=== PATIENT | female | born 1995 | race Caucasian/White ===

== ENCOUNTER 2017-01-31 12:00 | Emergency (ER) | payer OTHER ==
[~2017-01-31] VITALS: Ht 180.3 cm; Wt 87.5 kg
[~2017-01-31 12:00] MED LIST: /ONDA4TA OR; GAB OR; PERC5TAB8 OR; PERC7.5T8 OR
[2017-01-31 12:01] VITALS: BP 112/74
[2017-01-31] MEDS ORDERED: VENL37TA PO (12:15)
[2017-01-31] MEDS ORDERED: FLUD1TA PO (12:15)
[2017-01-31] MEDS ORDERED: OMEP40CA2 PO (12:15)
[2017-01-31] MEDS ORDERED: METO-346 PO (12:15)
[2017-01-31] MEDS ORDERED: DOCQ100C PO (12:15)
[2017-01-31] MEDS ORDERED: TESS100C PO (12:41)
[2017-01-31] MEDS ORDERED: ALBU17IN INH (12:41)
[2017-01-31] MEDS ORDERED: AUGM875T27 PO (12:41)
== END 2017-01-31 12:52 | disposition home or self-care (01) ==
LOC: M ED 12:30
DX: H66.003 Acute suppurative otitis media without spontaneous rupture of ear drum, bilateral (principal); R05 Cough; Z88.8 Allergy status to other drugs, medicaments and biological substances; Z79.899 Other long term (current) drug therapy

== ENCOUNTER 2017-03-24 18:30 | Emergency (ER) | payer OTHER ==
[~2017-03-24] VITALS: Ht 180.3 cm; Wt 90.3 kg
[~2017-03-24 18:30] MED LIST changes: +ALBU17IN INH; +AUGM875T27 PO; +DOCQ100C PO; +FLUD1TA PO; +METO-346 PO; +OMEP40CA2 PO; +TESS100C PO; +VENL37TA PO
[2017-03-24 22:51] LABS: BASO % 0.4 % (0.0-1.0); EOS # 0.2 K/mm3 (0.0-0.50); EOS % 2.6 % (0.0-3.0); LARGE UNSTAINED CELL # 0.2 K/mm3 (0.0-0.4); LARGE UNSTAINED CELL % 2.3 % (0.0-4.0); LYMPH # 2.5 K/mm3 (1.5-6.5); LYMPH % 35.2 % (24.0-44.0); MEAN CORPUSCULAR HEMOGLOBIN 29.3 pg (27.0-33.0); MEAN CORPUSCULAR VOLUME 86.1 fl (80.0-96.0); MONO # 0.4 K/mm3 (0.0-0.8); MONO % 5.3 % (0.0-5.0); NEUTROPHILS # 3.6 K/mm3 (1.8-7.7); NEUTROPHILS % 54.2 % (36.0-66.0); PLATELET COUNT, AUTOMATED 314 k/mm3 (150-450); RED CELL DISTRIBUTION WIDTH 14.1 % (11.5-14.5); WHITE BLOOD COUNT 6.6 K/mm3 (4.0-10.0)
[2017-03-24 22:58] LABS: INR 1.01
[2017-03-24 23:31] LABS: ANION GAP 9 MEQ/L (8-16); BLOOD UREA NITROGEN 6 MG/DL (7-18); CALCIUM LEVEL 9.1 MG/DL (8.5-10.1); CARBON DIOXIDE LEVEL 24 MEQ/L (21-32); CHLORIDE LEVEL 107 MEQ/L (98-107); FREE T4 1.15 NG/DL (0.76-1.46); GLOMERULAR FILTRATION RATE > 60.0 (>60); GLUCOSE, FASTING 86 MG/DL (70-105); HCG, SERUM QUANTITATIVE 14491 MIU/ML; POTASSIUM SERUM 3.5 MEQ/L (3.5-5.1); SODIUM LEVEL 140 MEQ/L (136-145)
[2017-03-24 23:35] LABS: METHADONE URINE NEGATIVE (NEGATIVE)
[2017-03-24] MEDS ORDERED: MACR100C3 PO (23:56)
[2017-03-25] MEDS ORDERED: NITROFURANTOIN (MACROBID) 100 MG CAP PO ONE
[2017-03-25 00:22] VITALS: BP 115/74
== END 2017-03-25 00:33 | disposition home or self-care (01) ==
LOC: M ED 22:08
DX: R55 Syncope and collapse (principal); O23.41 Unspecified infection of urinary tract in pregnancy, first trimester; O10.911 Unspecified pre-existing hypertension complicating pregnancy, first trimester; Z98.84 Bariatric surgery status; Z79.899 Other long term (current) drug therapy; Z88.8 Allergy status to other drugs, medicaments and biological substances; Z3A.00 Weeks of gestation of pregnancy not specified

== ENCOUNTER → 2017-04-03 | Outpatient (CLI) | payer OTHER ==
[~2017-04-03] MED LIST changes: +MACR100C3 PO
[2017-04-03 10:39] LABS: MEAN CORPUSCULAR HGB CONC 33.8 g/dl (32.0-36.5); MEAN CORPUSCULAR VOLUME 88.6 fl (80.0-96.0); RED CELL DISTRIBUTION WIDTH 13.7 % (11.5-14.5); WHITE BLOOD COUNT 6.1 K/mm3 (4.0-10.0)
[2017-04-03 11:08] LABS: ALBUMIN 3.4 GM/DL (3.2-5.2); ALBUMIN/GLOBULIN RATIO 0.97 (1.00-1.93); ALKALINE PHOSPHATASE 104 U/L (45-117); ALT/SGPT 16 U/L (12-78); ANION GAP 9 MEQ/L (8-16); AST/SGOT 9 U/L (15-37); BILIRUBIN,TOTAL 0.3 MG/DL (0.2-1.0); BLOOD UREA NITROGEN 8 MG/DL (7-18); CALCIUM LEVEL 8.8 MG/DL (8.5-10.1); CARBON DIOXIDE LEVEL 25 MEQ/L (21-32); CHLORIDE LEVEL 104 MEQ/L (98-107); CREATININE FOR GFR 0.71 MG/DL (0.55-1.02); GLOMERULAR FILTRATION RATE > 60.0 (>60); GLUCOSE, FASTING 61 MG/DL (70-105); SODIUM LEVEL 138 MEQ/L (136-145); THYROXINE (T4) 11.2 UG/DL (4.5-12.0); TOTAL PROTEIN 6.9 GM/DL (6.4-8.2)
== END ==
LOC: M LAB 09:51
PROVIDERS: ATTEND Nurse Practitioner Family
DX: F41.1 Generalized anxiety disorder (principal); N30.00 Acute cystitis without hematuria; Z33.1 Pregnant state, incidental

== ENCOUNTER → 2017-04-03 | Outpatient (CLI) | payer OTHER ==
--- NOTE | 2017-04-04 08:22 | REP ---
Clinical: Dating and viability. Technique: None Findings: Single live early intrauterine is appreciated. Gestational sac with yolk sac and pole identified. [place]-rump length of 9 mm corresponds to 7 weeks 0 days gestational age with estimated date of delivery 11/20/2017 . heart rate equals 136 beats per minute. No gross abnormalities are identified. Impression: Single live early intrauterine at 7 weeks 0 days gestational age. Complete anatomical assessment should be performed and 19-20 weeks. Signed by Juan Alberto Piper MD 04/04/2017 08:13 A
== END ==
LOC: M RAD 09:03
PROVIDERS: ATTEND Nurse Practitioner Women's Health
DX: O09.91 Supervision of high risk pregnancy, unspecified, first trimester (principal); Z3A.00 Weeks of gestation of pregnancy not specified

== ENCOUNTER 2017-08-14 15:54 | Inpatient (IN) | payer OTHER ==
[~2017-08-14] VITALS: Ht 180.3 cm; Wt 86.0 kg
[~2017-08-14 15:54] MED LIST changes: -AUGM875T27 PO; +AUGM875T28 PO; +FLUD0.1T PO; -FLUD1TA PO; -MACR100C3 PO; +MACR100C43 PO
[2017-08-14 17:52] VITALS: BP 116/61
[2017-08-14 17:53] VITALS: BP_SYST 113; BP_SYST 114; BP_SYST 116; BP_DIAS 61; BP_DIAS 66; BP_DIAS 71
[2017-08-14] MEDS ORDERED: MACR100C43 PO (17:59)
[2017-08-14] MEDS ORDERED: METO1TAB87 PO (17:59)
[2017-08-14] MEDS ORDERED: FLUD0.1T PO (17:59)
[2017-08-14] MEDS ORDERED: OMEP40CA2 PO (17:59)
[2017-08-14] MEDS ORDERED: PREN1CHW4 PO (17:59)
[2017-08-14] MEDS ORDERED: BENA25CA4 PO (17:59)
[2017-08-14 18:00] LABS: BASO % 0.3 % (0.0-1.0); EOS # 0.2 10^3/uL (0.0-0.50); EOS % 2.5 % (0.0-3.0); IMMATURE GRANULOCYTE % 0.2 % (0-0); LYMPH # 2.1 10^3/uL (1.5-6.5); LYMPH % 22.2 % (24.0-44.0); MEAN CORPUSCULAR HEMOGLOBIN 30.3 pg (27.0-33.0); MEAN CORPUSCULAR HGB CONC 33.7 g/dl (32.0-36.5); MONO # 0.7 10^3/uL (0.0-0.8); MONO % 7.1 % (0.0-5.0); NEUTROPHILS # 6.4 10^3/uL (1.8-7.7); NEUTROPHILS % 67.7 % (36.0-66.0); PLATELET COUNT, AUTOMATED 286 10^3/uL (150-450); RED CELL DISTRIBUTION WIDTH 13.2 % (11.5-14.5); WHITE BLOOD COUNT 9.4 10^3/uL (4.0-10.0)
[2017-08-14] MEDS ORDERED: ONDA4TAB5 PO (18:00)
[2017-08-14] MEDS: NS 1,000 ML IV SCH (18:46)
[2017-08-14 19:40] LABS: ANION GAP 9 MEQ/L (8-16); BLOOD UREA NITROGEN 6 MG/DL (7-18); CALCIUM LEVEL 8.1 MG/DL (8.5-10.1); CARBON DIOXIDE LEVEL 22 MEQ/L (21-32); CHLORIDE LEVEL 109 MEQ/L (98-107); CREATININE FOR GFR 0.43 MG/DL (0.55-1.02); GLOMERULAR FILTRATION RATE > 60.0 (>60); GLUCOSE, FASTING 75 MG/DL (70-105); POTASSIUM SERUM 3.9 MEQ/L (3.5-5.1); SODIUM LEVEL 140 MEQ/L (136-145)
--- NOTE | 2017-08-14 19:42 | HPE ---
DATE OF ADMISSION: 08/14/2017 PHYSICIAN RELATIONS SPECIALIST: Dr. Valladares OB-CLIENT RELATIONSHIP MANAGER: Dr. Infante in [place] CHIEF COMPLAINT: Recurrent syncope. HISTORY OF PRESENT ILLNESS: This is a 22-year-old 25 week gestation female with history supraventricular tachycardia (SVT) status post ablation with Holter monitor and recent echo 1 month ago with no abnormalities presented to [place] emergency room with complaints of recurrent syncope at home times five yesterday and two today. The patient states that she was making dinner last evening when she passed out for a few seconds. When she came around she denied any tonic-clonic movements, urinary or bowel incontinence. Denies any post-ictal confusion, no head trauma. She fell sideways, landed on the kitchen floor. Systolic pressure at the time when she checked it was 70/40 and had postsyncopal vomiting. She denies any history of upper respiratory infection , fever, chills, cough, rhinorrhea, nasal congestion, ear discharge or ear issues. The patient otherwise denies any palpitations, no prodromal symptoms. Did not feel like she was going to pass out. She did complain of occasional lightheadedness. She also describes massive chest pain, stabbing and burning which stopped after a few minutes, unrelated to her meals. The patient is being treated with Macrodantin for a urinary tract infection (UTI) and has had history of recurrent UTIs. She has had no injuries from the five syncopal episodes that she has had at home. In [place] emergency room, she was found to have systolic pressure of 88, orthostatic and was given 1 liter of normal saline bolus with improvement. At [facility] her blood pressure was 113/116 from supine to standing position. She otherwise denies any diarrhea, vomiting aside from the episode last evening. Denies any bright red blood per rectum, melena or black tarry stools. She denies any weight gain or weight loss. She is 25 weeks gestation. Has had no menorrhagia, no sick contacts. PAST MEDICAL HISTORY: Supraventricular tachycardia. Chronic migraines. Reflex sympathetic dystrophy (RSD). Breast cyst which was benign. Left ovarian cyst. PAST SURGICAL HISTORY: Ablation. Appendectomy. 17 nerve blocks. ALLERGIES: MIDODRINE causing numbness from head to toe, also causes rash. SEASONAL allergies. SOCIAL HISTORY: No cigarettes, alcohol, currently on SSI. Not working and not in school. Lives with her grandmother. FAMILY HISTORY: Mother living with pulmonary fibrosis. Father alive and well. No medical problems. Maternal grandfather had diabetes, pacemaker and valve replacement. Maternal aunt has diabetes. REVIEW OF SYSTEMS: Per HPI. 12 point system otherwise negative. PHYSICAL EXAMINATION: VITAL SIGNS: Temperature 98.5, pulse 89, respiratory rate 20, blood pressure 116/61 supine, standing 113/70, 100% on room air. The patient is awake, alert, oriented times three. Answering questions appropriately. Pupils are round, reactive to light. Extraocular muscles are intact. Normocephalic, atraumatic. Moist mucous membranes. No cervical lymphadenopathy, thyromegaly. Lungs are clear to auscultation. No wheezing, rales or rhonchi. Heart: S1, S2, sinus tachycardia. Abdomen is soft, nontender, nondistended. Positive bowel sounds. Gravid uterus, 25 weeks gestation. Extremities: No cyanosis, clubbing or pitting edema. Neurologically: Awake, alert, oriented times three. Answering questions appropriately. Motor function is 5 out of 5 times lower extremities. No sensory disturbances. EKG: Pending. LABS: White count 9.4, hemoglobin 10, hematocrit 30, platelet count 286, 67% neutrophils, metabolic panel is pending. Urinalysis is pending. Urine culture is pending. ASSESSMENT AND PLAN: This is a 22-year-old female with history of SVT on chronic metoprolol with chronic migraines, RSV, breast cyst and left ovarian cyst. Has had ablation for SVT, appendectomy and 17 nerve blocks. ALLERGIC to MIDODRINE causing numbness and rash presents to [facility] emergency room with 2 day history of recurrent syncope times five found to be orthostatic. Systolic pressure of 88/50 to 96/62 from supine to standing with increase in pulse from 77 to 94 with change in position. The patient is transferred to [facility] for further workup. The patient will be admitted for observation, assigned to Dr. Justin Boyce for the following issues: 1. Recurrent syncope. Most likely secondary to orthostasis. The patient will be given intravenous fluids times 2 liters. Monitored on telemetry overnight, rule out arrhythmia. She has had a Holter monitor which showed no arrhythmias and an echocardiogram one month ago with Dr. Valladares, [facility] which appears to be within normal limits. Dr. Valladares has been consulted and will see the patient on 08/15/2017. The patient denies any recent diarrhea. Aside from one or two episodes of vomiting, she is able to keep an oral diet down and tolerating oral diet at this time. She denies any bright red blood per rectum, melena or black tarry stools. Hemoglobin appears to be stable. 2. [address] Sims, Ob-Center Mgr has been consulted for monitoring. monitoring of the heart rate has also been ordered by maternity. RN has been made aware. 3. History if chronic migraines. No acute headache symptoms. 4. History of RSD. 5. History of breast cyst. 6. History of left ovarian cyst. 7. Deep venous thrombosis (DVT) prophylaxis with compression stockings. The patient will be assigned to Dr. Justin Boyce at 10:00 pm 08/14/2017. SARTHAK
[2017-08-14 19:58] VITALS: BP 117/61
[2017-08-14 20:10] VITALS: BP 117/61; PULSE 91
[2017-08-14] MEDS: diphenhydrAMINE 25 MG CAP PO SCH (20:24)
[2017-08-14] MEDS: ACETAMINOPHEN TAB 650MG DOSE (2X325MG) PO PRN (20:25)
[2017-08-14] MEDS: METOPROLOL TART 25 MG TABLET PO SCH (20:25)
[2017-08-14] MEDS: FLUDROCORTISONE ACETATE 0.1 MG TAB PO SCH (20:25)
[2017-08-14] MEDS: NITROFURANTOIN (MACROBID) 100 MG CAP PO SCH (20:26)
[2017-08-14] MEDS: OMEPRAZOLE 20 MG CAP PO SCH (20:26)
[2017-08-14] MEDS: ONDANSETRON 4 MG TAB (S0181) PO PRN (20:26)
[2017-08-15] VITALS (8 sets, daily range): BP systolic 93–123; BP diastolic 51–68; PULSE 95
[2017-08-15] MEDS: NS 1,000 ML IV SCH (04:15)
--- NOTE | 2017-08-15 06:15 | ECGEPIP ---
Stationary ECG Study [facility] Test Date: 2017-08-14 Pat Name: KAELYN PINK Department: Room: [place] [address] Gender: F Sealant Mixer: LEONORA : 1995 Requested By: STEPHAN López Order Number: [id number] Reading MD: Edson Brambila Measurements Intervals [place] Rate: 85 P: 50 [place]: 131 QRS: 11 QRSD: 83 T: -10 QT: 387 QTc: 461 Interpretive Statements SINUS RHYTHM POSSIBLE RIGHT VENTRICULAR CONDUCTION DELAY Nonspecific T wave abnormality Electronically Signed On 08-15-2017 6:15:32 EDT by Edson Brambila
[2017-08-15 06:58] LABS: BASO % 0.5 % (0.0-1.0); EOS # 0.2 10^3/uL (0.0-0.50); EOS % 3.2 % (0.0-3.0); IMMATURE GRANULOCYTE % 0.4 % (0-0); LYMPH # 2.2 10^3/uL (1.5-6.5); LYMPH % 28.3 % (24.0-44.0); MEAN CORPUSCULAR HEMOGLOBIN 30.5 pg (27.0-33.0); MEAN CORPUSCULAR HGB CONC 33.6 g/dl (32.0-36.5); MEAN CORPUSCULAR VOLUME 90.7 fl (80.0-96.0); MONO # 0.6 10^3/uL (0.0-0.8); NEUTROPHILS # 4.5 10^3/uL (1.8-7.7); NEUTROPHILS % 59.6 % (36.0-66.0); PLATELET COUNT, AUTOMATED 241 10^3/uL (150-450); RED CELL DISTRIBUTION WIDTH 13.1 % (11.5-14.5); WHITE BLOOD COUNT 7.6 10^3/uL (4.0-10.0)
[2017-08-15 07:24] LABS: ANION GAP 8 MEQ/L (8-16); BLOOD UREA NITROGEN 5 MG/DL (7-18); CALCIUM LEVEL 7.8 MG/DL (8.5-10.1); CARBON DIOXIDE LEVEL 22 MEQ/L (21-32); CHLORIDE LEVEL 112 MEQ/L (98-107); CREATININE FOR GFR 0.42 MG/DL (0.55-1.02); GLOMERULAR FILTRATION RATE > 60.0 (>60); GLUCOSE, FASTING 77 MG/DL (70-105); POTASSIUM SERUM 3.8 MEQ/L (3.5-5.1); SODIUM LEVEL 142 MEQ/L (136-145)
[2017-08-15] MEDS: PRENATAL VITAMINS CHEWABLE TABLET PO SCH (08:19)
[2017-08-15] MEDS: NITROFURANTOIN (MACROBID) 100 MG CAP PO SCH ×2 (08:20→22:26)
[2017-08-15] MEDS: ACETAMINOPHEN TAB 650MG DOSE (2X325MG) PO PRN ×2 (09:02→18:33)
--- NOTE | 2017-08-15 09:13 | CR ---
DATE OF CONSULTATION: 08/15/2017 REFERRING PHYSICIAN: Dr. Dale INDICATION: Recurrent syncope. HISTORY OF PRESENT ILLNESS: Ms. Cortes is known to me. She is a pleasant 22-year-old female who is currently 25 weeks . She has a long history of supraventricular tachycardia and underwent ablation 3 years ago in [place] that brought fairly substantial improvement in her symptoms. She still though continued to have orthostatic hypotension and consequently she was maintained on a small dose of fludrocortisone. With the onset of her though, her symptoms markedly improved and she had not had any syncope or near-syncope until a week ago. At that point, she started having episodes of gali syncope. She describes them as somewhat complex events. She usually would wake up with a headache behind her right eye. Then the headache would persist throughout the day and then at some point she starts having chest pain. It is a sharp discomfort just left from her sternum without obvious radiation that can be present for several minutes up to several hours, but eventually when the pain starts subsiding she will suddenly lose consciousness without any warning. None of the episodes were witnessed, but it appears that the loss of consciousness is probably quite brief. When she wakes up, she usually has much more severe headache than she had previously and often is nauseated and vomits. She also has metallic taste in her mouth. She does not recall any loss of bowel or urine control during the episodes. Somewhat surprisingly, the episodes occur also when she is lying in bed or sitting, but obviously with standing occurs as well. She was calling our office yesterday and after hearing that she had five syncopal events in a matter of 24 hours she was instructed to go to the emergency room in [place]. They contacted me and I helped to arranged the transfer. I appreciate the willingness of the hospitalist service to accept the patient on their service. She has been well since she came here and has not had any events, but she does report that she does have the headache behind her right eye again today and she usually says that when she has headaches she is a lot more likely to have yet another loss of consciousness. At the bedside, I interrogated her Reveal monitor that she has implanted since her ablation. It revealed no arrhythmias lately, the last one was on May 30. It represents narrow complex tachycardia with ventricular rate of 175 beats per minute, unlikely to lead to loss of consciousness. PAST MEDICAL HISTORY: Positive for supraventricular tachycardia (SVT) as above, chronic orthostatic hypotension, migraine headaches, reflex sympathetic dystrophy (RSD) and resection of breast cyst. SURGICAL HISTORY: Positive for appendectomy and nerve blocks. ALLERGIES: She reports allergy or intolerance to MIDODRINE. SOCIAL HISTORY: She lives with her grandmother who works so she is often alone. She is single, does not work, does not smoke. No alcohol. FAMILY HISTORY: Mother has pulmonary fibrosis. Father is well. There is no history of sudden cardiac . REVIEW OF SYSTEMS: She denies any recent fever, chills. No nausea or vomiting outside of the episode immediately following loss of consciousness. No abdominal pain. No burning on urination. No peripheral edema. No injuries. PHYSICAL EXAMINATION: Mrs. Cortes is a young woman who appears her age. She appears in no distress. Blood pressure is low, typically running in the 90s systolic and 50s diastolic. She had two sets of orthostatic vital signs that were negative. Saturation 99% in room air. Heart rate in 70s to 90s and she is afebrile. Weighs 86.2 kg. She is alert, oriented and appropriate. Her jugular venous pulse (JVP) is not elevated. I do not appreciate any goiter. There is no carotid bruit. Lungs are clear to auscultation with good air movement. Heart exam reveals regular rhythm without gallop, rub or murmur. There is a Reveal monitor implanted under the skin in the left precordial area just adjacent to the sternum. Abdomen is , but soft and otherwise benign. I do not appreciate hepatosplenomegaly. There is no peripheral edema. Neurologically she is intact. There are no skin lesions. LABORATORY-[facility]: CBC this morning: Hemoglobin 9.2, hematocrit 27.4, platelet count 241,000. Basic metabolic panel is normal. TSH is slightly suppressed at 0.19. She had the urinalysis in [place] and also here that revealed a few white blood cells and some bacteria. Loop recorder interrogation as above. ASSESSMENT/PLAN: Ms. Cortes is a 22-year-old female who has a remote history of SVT status post ablation. She presented with five syncopal events that were unwitnessed in the scope of about 24 hours. The last one was yesterday morning. The description of the episode is not sounding arrhythmic and the Reveal monitor did not record any arrhythmias so I think that we can rule this out. She also does not give a history that is typical for orthostatic hypotension as at least two of the episodes occurred when she was actually in bed or laying in the recliner. There are several features that make me suspicious of neurologic etiology. First of all, that the episodes always occur when she has a headache and the headache gets much worse shortly after the event. She also has a metallic taste in her mouse after that the episode is over. I would think it would be appropriate to get neurologic input. From my perspective, besides monitoring the patient for one more day or so, I would not plan any further interventions. She was intolerant of midodrine and it is probably not a good idea to administer it during anyhow. There is no convincing evidence that the episodes are orthostatic in nature. She did not have any arrhythmias and consequently I have very little to offer here. As far as the etiology of chest pain is concerned, it is somewhat mysterious. She has shallow T-wave inversions in inferior leads and I think are probably nonspecific. She certainly does not have coronary artery disease in her age and the description is not suggestive of ischemic etiology. I also am not convinced about the possibility of a pericardial process. I am going to get a followup EKG tomorrow, but unless there is some evolution I do not think that we need to do any further cardiac testing. SARTHAK
[2017-08-15 09:27] LABS: FREE T4 1.16 NG/DL (0.76-1.46); MAGNESIUM LEVEL 1.4 MG/DL (1.8-2.4)
[2017-08-15] MEDS: ONDANSETRON 4 MG TAB (S0181) PO PRN (13:26)
--- NOTE | 2017-08-15 16:08 | IPNPDOC ---
Text Note Date of Service The patient was seen on 08/15/17. NOTE Subjective: Pt c/o syncope x 5 prior to admission. Appears she was orthostatic prior to coming to [facility]. Orthostatics negative now, but her lightheadedness /[place] is still persistent. Objective: Vitals: (see below) General: No acute distress, laying comfortably in bed. HEENT: Moist mucous membranes. Neck: No JVD or lymphadenopathy Cardiac: RRR, No murmurs Pulm: Clear to auscultation b/l. No wheezing, rhonchi Abd: NT/ND + BS Ext: No edema or cyanosis Labs (see below) Images: Assessment/Plan 1. Syncope - ?orthostatic cause. Apparently orthostatic at [facility]; Will check manual orthostatic vitals. H/o SVT s/p ablation; no recent arrhythmias. Appreciate cardio input. Neuro consulted as well given association with migraines; MRI/MRV Brain, EEG pending. 2. H/o chronic migraines - states she has been on many preventative agents with no relief 3. H/o orthostatic hypotension on florinef 4. 25 week gestation - OBGYN consulted for monitoring. 5. ? UTI - states she has a h/o frequent UTIs, and was told she has a UTI at [facility] ; placed on nitrofurantoin. DVT prophy:SCDs VS,Fishbone, I+O VS, Fishbone, I+O Laboratory Tests 08/14/17 17:48 Red Blood Count 3.40 L, Mean Corpuscular Volume 90.0, Mean Corpuscular Hemoglobin 30.3, Mean Corpuscular Hemoglobin Concent 33.7, Red Cell Distribution Width 13.2, Neutrophils (%) (Auto) 67.7 H, Lymphocytes (%) (Auto) 22.2 L, Monocytes (%) (Auto) 7.1 H, Eosinophils (%) (Auto) 2.5, Basophils (%) ( Auto) 0.3, Neutrophils # (Auto) 6.4, Lymphocytes # (Auto) 2.1, Monocytes # (Auto ) 0.7, Eosinophils # (Auto) 0.2, Basophils # (Auto) 0.0, Calcium Level 8.1 L 08/15/17 06:48 Red Blood Count 3.02 L, Mean Corpuscular Volume 90.7, Mean Corpuscular Hemoglobin 30.5, Mean Corpuscular Hemoglobin Concent 33.6, Red Cell Distribution Width 13.1, Neutrophils (%) (Auto) 59.6, Lymphocytes (%) (Auto) 28.3, Monocytes (%) (Auto) 8.0 H, Eosinophils (%) (Auto) 3.2 H, Basophils (%) ( Auto) 0.5, Neutrophils # (Auto) 4.5, Lymphocytes # (Auto) 2.2, Monocytes # (Auto ) 0.6, Eosinophils # (Auto) 0.2, Basophils # (Auto) 0.0, Calcium Level 7.8 L, Total Creatine Kinase 26 Vital Signs Date Time Temp Pulse Resp B/P (MAP) Pulse Ox O2 Delivery O2 Flow Rate FiO2 08/15/17 12:00 97.6 89 16 106/58 (74) 99 Room Air I&O- Last 24 Hours up to 6 AM 08/16/17 06:00 Intake Total 360 ml Output Total 650 ml Balance -290 ml JENNY SYKES MD Aug 15, 2017 16:08
--- NOTE | 2017-08-15 21:50 | REPUSA ---
Clinical history: headaches, syncope. Technique: Camc-eb-tstrbp MRV images of the brain were obtained without administration of contrast. 3 -D MIP images were also obtained. Findings: The intracranial venous structures demonstrate normal caliber and contour. There is no evid ence of aneurysm, stenosis, or thrombosis. Impression: Unremarkable MRV examination of the brain.
--- NOTE | 2017-08-15 22:10 | REPUSA ---
MRI brain clinical history: headache. Technique: Multiecho multiplanar MRI images of the brain were obtained without administration of cont rast. Diffusion weighted images with ADC mapping was also obtained. The ventricles and sulci are symmetric bilaterally. The brain parenchyma demonstrates uniform and nor mal signal on all sequences. There is no midline shift, mass effect, or extra-axial fluid collection. The midline intracranial structures do not demonstrate any gross abnormalities. The cervical cranial junction is intact. The orbits are unremarkable. The visualized paranasal sinuses and mastoid air ce lls are clear. The osseous structures and superficial soft tissues are unremarkable. The vascular str uctures demonstrate appropriate flow voids. Impression: No acute findings.
[2017-08-15] MEDS: FLUDROCORTISONE ACETATE 0.1 MG TAB PO SCH (22:25)
[2017-08-15] MEDS: diphenhydrAMINE 25 MG CAP PO SCH (22:25)
[2017-08-15] MEDS: OMEPRAZOLE 20 MG CAP PO SCH (22:26)
[2017-08-15] MEDS: METOPROLOL TART 25 MG TABLET PO SCH (22:35)
[2017-08-16 04:00] VITALS: BP 103/53
[2017-08-16 08:00] VITALS: BP 91/54
[2017-08-16 08:29] LABS: BASO % 0.4 % (0.0-1.0); EOS # 0.2 10^3/uL (0.0-0.50); IMMATURE GRANULOCYTE % 0.2 % (0-0); LYMPH # 1.9 10^3/uL (1.5-6.5); LYMPH % 23.1 % (24.0-44.0); MEAN CORPUSCULAR HEMOGLOBIN 30.5 pg (27.0-33.0); MEAN CORPUSCULAR VOLUME 89.6 fl (80.0-96.0); MONO # 0.6 10^3/uL (0.0-0.8); MONO % 7.2 % (0.0-5.0); NEUTROPHILS # 5.3 10^3/uL (1.8-7.7); NEUTROPHILS % 66.1 % (36.0-66.0); PLATELET COUNT, AUTOMATED 267 10^3/uL (150-450); WHITE BLOOD COUNT 8.1 10^3/uL (4.0-10.0)
[2017-08-16] MEDS: PRENATAL VITAMINS CHEWABLE TABLET PO SCH (08:46)
[2017-08-16] MEDS: NITROFURANTOIN (MACROBID) 100 MG CAP PO SCH ×2 (08:46→22:32)
[2017-08-16 08:54] LABS: ANION GAP 7 MEQ/L (8-16); BLOOD UREA NITROGEN 4 MG/DL (7-18); CALCIUM LEVEL 8.1 MG/DL (8.5-10.1); CARBON DIOXIDE LEVEL 25 MEQ/L (21-32); CHLORIDE LEVEL 110 MEQ/L (98-107); CREATININE FOR GFR 0.51 MG/DL (0.55-1.02); GLOMERULAR FILTRATION RATE > 60.0 (>60); GLUCOSE, FASTING 75 MG/DL (70-105); MAGNESIUM LEVEL 1.5 MG/DL (1.8-2.4); POTASSIUM SERUM 4.1 MEQ/L (3.5-5.1); SODIUM LEVEL 142 MEQ/L (136-145)
[2017-08-16 11:35] VITALS: BP_SYST 96; BP_SYST 98; BP_DIAS 56; BP_DIAS 58
[2017-08-16 12:00] VITALS: BP 104/56
--- NOTE | 2017-08-16 12:00 | CR ---
DATE OF CONSULTATION: 08/15/2017 REFERRING PHYSICIAN: Dr. Justin Boyce REASON FOR CONSULTATION: Passing out spells. HISTORY OF PRESENT ILLNESS: Ann-Marie Cortes is a 22-year-old woman who is 25 weeks and has a history of supraventricular tachycardia (SVT) status post cardiac ambulation in 2014. The patient states that she started passing out in 2013 and states that she has passed out more than 500 times in the last 3 years. Her passing-out spells are different than one another, but they have some common symptoms such as chest pain, migraine, nausea, vomiting before or after her passing-out spells. She has passed out four or five times over the last couple of days. She was making dinner evening prior to her day of admission when she passed out for a few seconds. There were no shaking of arms and legs, urinary incontinence or tongue biting. Another time she fell sideways and landed on the kitchen floor. Her blood pressure was systolic/diastolic 70/40. She vomited after her passing-out spell. She also has off and on lightheadedness. She has massive chest pain, stabbing, burning in character. The patient states that she has been on Social Security/Disability due to her passing out spells. She has a history of migraines since 5 years of age. She was under the care of neurologist at [facility]. She states that she does not believe in Botox and has been refusing Botox when it was recommended at [facility]. She last saw them in 2014. She used to have nerve blocks in frontal and temporal head regions on the right side. She states that she did not have any headaches since of 2014 until now. She states that her headaches went away. They came back a couple of days ago. She currently has right frontal and temporal 10/10 headache with nausea, dizziness, blurred vision, photophobia and phonophobia. Headaches are sharp pressure or pounding in character with dizziness. She denies any neck or back pain. PAST MEDICAL HISTORY: History of SVT status, post cardiac ablation, multiple passing-out spells, migraines which are chronic, reflex sympathetic dystrophy (RSD), breast cyst, left ovarian cyst, appendectomy, nerve blocks for headaches. ALLERGIES: MIDODRINE. SOCIAL HISTORY: She denies smoking, alcohol or illicit drugs. She is on Social Security/Disability. FAMILY HISTORY: Mother has pulmonary fibrosis. Father is healthy. Maternal grandfather has diabetes and pacemaker. CURRENT MEDICATIONS: - Florinef 0.3 mg by mouth nightly - metoprolol 25 mg by mouth daily - Prilosec 40 mg by mouth daily - Benadryl 50 mg by mouth nightly - vitamins REVIEW OF SYSTEMS: All systems were reviewed and were found to be noncontributory except as mentioned in the history of the present illness. PHYSICAL EXAMINATION: Temperature 97.4, pulse 85, respiratory rate 16, blood pressure 114/57, 100% saturation on room air. Heart: Regular rate and rhythm. Lungs: Clear to auscultation. Abdomen: Soft, nontender, nondistended. No pedal edema. No rash. No fractures. Ears, Nose, Throat examination is within normal limits. The patient is awake, alert, oriented to place, person and time. She appears to have photophobia and keeps lights off in the room and keeps her eyes closed during examination. Extraocular muscles are intact. No facial weakness. Tongue/uvula are midline. 5/5 strength in all four extremities. No dysmetria or ataxia. There is no tremor. There is no rigidity. Sensations are intact throughout. Deep tendon flexes are 2+ throughout. Gait was not tested. There are no signs of meningeal irritation. ASSESSMENT: 1. Chronic migraines, without aura, intractable, with status migrainosus. 2. Chronic tension headaches, intractable. 3. Suspected vasovagal syncope. 4. Seizures are less likely. 5. History of supraventricular tachycardia (SVT) without recurrence after cardiac ablation. 6. Chest pain. PLAN: 1. MRI and MRV of brain if radiology agrees to perform these tests during . 2. Fioricet one tablet by mouth three times a day as needed. 3. Physical and occupational therapy. 4. EEG. 5. Patient will followup with her neurologist at [facility] and cardiology.
--- NOTE | 2017-08-16 15:36 | IPNPDOC ---
Text Note Date of Service The patient was seen on 08/16/17. NOTE Subjective: Patient states that's she's had episode of syncope when she went down for MRI. Had a severe headache at the time as well. Objective: Vitals: (see below) General: No acute distress, laying comfortably in bed. HEENT: Moist mucous membranes. Neck: No JVD or lymphadenopathy Cardiac: RRR, No murmurs Pulm: Clear to auscultation b/l. No wheezing, rhonchi Abd: NT/ND + BS Ext: No edema or cyanosis Labs (see below) Images: Assessment/Plan 1. Syncope - manual Orthostatic vitals have been negative. H/o SVT s/p ablation ; no recent arrhythmias. Appreciate cardio input. Neuro consulted as well given association with migraines; MRI/MRV Brain negative, EEG pending. Exact cause of her syncope is not well known at this point, although it can be multifactorial given her history. 2. H/o chronic migraines - states she has been on many preventative agents with no relief 3. H/o orthostatic hypotension on florinef 4. 25 week gestation - OBGYN consulted for monitoring. 5. ? UTI - states she has a h/o frequent UTIs, and was told she has a UTI at [facility] ; placed on nitrofurantoin. DVT prophy:SCDs VS,Fishbone, I+O VS, Fishbone, I+O Laboratory Tests 08/16/17 08:19 Red Blood Count 3.28 L, Mean Corpuscular Volume 89.6, Mean Corpuscular Hemoglobin 30.5, Mean Corpuscular Hemoglobin Concent 34.0, Red Cell Distribution Width 13.0, Neutrophils (%) (Auto) 66.1 H, Lymphocytes (%) (Auto) 23.1 L, Monocytes (%) (Auto) 7.2 H, Eosinophils (%) (Auto) 3.0, Basophils (%) ( Auto) 0.4, Neutrophils # (Auto) 5.3, Lymphocytes # (Auto) 1.9, Monocytes # (Auto ) 0.6, Eosinophils # (Auto) 0.2, Basophils # (Auto) 0.0, Calcium Level 8.1 L Vital Signs Date Time Temp Pulse Resp B/P (MAP) Pulse Ox O2 Delivery O2 Flow Rate FiO2 08/16/17 12:00 98.1 99 18 104/56 (74) 97 Room Air I&O- Last 24 Hours up to 6 AM 08/17/17 06:00 Intake Total 720 ml Output Total 400 ml Balance 320 ml JENNY SYKES MD Aug 16, 2017 15:36
[2017-08-16 16:00] VITALS: BP 95/53
[2017-08-16] MEDS: ACETAMINOPHEN TAB 650MG DOSE (2X325MG) PO PRN ×2 (16:34→22:34)
[2017-08-16 20:00] VITALS: BP 109/56
[2017-08-16] MEDS: OMEPRAZOLE 20 MG CAP PO SCH (22:31)
[2017-08-16] MEDS: FLUDROCORTISONE ACETATE 0.1 MG TAB PO SCH (22:32)
[2017-08-16] MEDS: ONDANSETRON 4 MG TAB (S0181) PO PRN (22:32)
[2017-08-16] MEDS: diphenhydrAMINE 25 MG CAP PO SCH (22:32)
[2017-08-16] MEDS: METOPROLOL TART 25 MG TABLET PO SCH (22:33)
[2017-08-17] VITALS (7 sets, daily range): BP systolic 88–110; BP diastolic 40–68
[2017-08-17 04:40] LABS: MEAN CORPUSCULAR HEMOGLOBIN 30.2 pg (27.0-33.0); MEAN CORPUSCULAR HGB CONC 33.8 g/dl (32.0-36.5); MEAN CORPUSCULAR VOLUME 89.3 fl (80.0-96.0); PLATELET COUNT, AUTOMATED 264 10^3/uL (150-450); RED CELL DISTRIBUTION WIDTH 13.2 % (11.5-14.5); WHITE BLOOD COUNT 7.8 10^3/uL (4.0-10.0)
[2017-08-17 04:56] LABS: CHLORIDE LEVEL 110 MEQ/L (98-107); CREATININE FOR GFR 0.49 MG/DL (0.55-1.02); GLUCOSE, FASTING 76 MG/DL (70-105); MAGNESIUM LEVEL 1.6 MG/DL (1.8-2.4); POTASSIUM SERUM 3.6 MEQ/L (3.5-5.1); SODIUM LEVEL 141 MEQ/L (136-145)
[2017-08-17 05:12] LABS: BLOOD UREA NITROGEN 6 MG/DL (7-18)
[2017-08-17 05:17] LABS: ANION GAP 8 MEQ/L (8-16); CARBON DIOXIDE LEVEL 23 MEQ/L (21-32)
--- NOTE | 2017-08-17 06:19 | ECGEPIP ---
Stationary ECG Study [facility] Test Date: 2017-08-15 Pat Name: KAELYN PINK Department: Room: [place] [address] Gender: F Compliance Paralegal: RUFINA : 1995 Requested By: JENNY SYKES Order Number: [id number] Reading MD: Edson Brambila Measurements Intervals [place] Rate: 87 P: 47 MT: 119 QRS: 17 QRSD: 81 T: -18 QT: 389 QTc: 468 Interpretive Statements SINUS RHYTHM WITH SHORT MT INTERVAL NONSPECIFIC T-WAVE ABNORMALITY Electronically Signed On 08-17-2017 6:19:16 EST by Edson Brambila
--- NOTE | 2017-08-17 06:22 | ECGEPIP ---
Stationary ECG Study [facility] Test Date: 2017-08-16 Pat Name: KAELYN PINK Department: Room: [place] [address] Gender: F Harness Mender: DEVEN : 1995 Requested By: Dawna Valladares Order Number: [id number] Reading MD: Edson Brambila Measurements Intervals [place] Rate: 76 P: 56 LA: 127 QRS: 18 QRSD: 86 T: -13 QT: 412 QTc: 466 Interpretive Statements SINUS RHYTHM Nonspecific T wave abnormality Electronically Signed On 08-17-2017 6:22:01 EST by Edson Brambila
[2017-08-17] MEDS ORDERED: SODIUM CHLORIDE 0.9% 1000 ML IV ONE (08:00)
[2017-08-17] MEDS ORDERED: MAG SULF 1GM/100ML (MAG RUN) 1 GM in APPROPRIATE DILUENT 1 EA IV ONE (08:00)
[2017-08-17] MEDS: ONDANSETRON 4 MG TAB (S0181) PO PRN (08:17)
[2017-08-17] MEDS: NITROFURANTOIN (MACROBID) 100 MG CAP PO SCH ×2 (08:17→21:09)
[2017-08-17] MEDS: PRENATAL VITAMINS CHEWABLE TABLET PO SCH (08:17)
[2017-08-17] MEDS ORDERED: POTASSIUM CHLORIDE 10 MEQ SR TABLET PO ONE (09:00)
--- NOTE | 2017-08-17 14:35 | IPNPDOC ---
Text Note Date of Service The patient was seen on 08/17/17. NOTE Subjective: Patient states she has some dizziness today. Denies any syncopal episodes. No chest pain/shortness of breath/palpitations. Objective: Vitals: (see below) General: No acute distress, laying comfortably in bed. HEENT: Moist mucous membranes. Neck: No JVD or lymphadenopathy Cardiac: RRR, No murmurs Pulm: Clear to auscultation b/l. No wheezing, rhonchi Abd: NT/ND + BS Ext: No edema or cyanosis Labs (see below) Images: Assessment/Plan 1. Syncope - manual Orthostatic vitals have been negative. H/o SVT s/p ablation ; no recent arrhythmias. Appreciate cardio input. Neuro consulted as well given association with migraines; MRI/MRV Brain negative, EEG pending. Exact cause of her syncope is not well known at this point, although it can be multifactorial given her history. 2. H/o chronic migraines - states she has been on many preventative agents with no relief 3. H/o orthostatic hypotension on florinef 4. 25 week gestation - OBGYN consulted for monitoring. 5. ? UTI - states she has a h/o frequent UTIs, and was told she has a UTI at [facility] ; placed on nitrofurantoin. DVT prophy:SCDs VS,Fishbone, I+O VS, Fishbone, I+O Laboratory Tests 08/17/17 04:00 Red Blood Count 3.08 L, Mean Corpuscular Volume 89.3, Mean Corpuscular Hemoglobin 30.2, Mean Corpuscular Hemoglobin Concent 33.8, Red Cell Distribution Width 13.2, Calcium Level 8.0 L Vital Signs Date Time Temp Pulse Resp B/P (MAP) Pulse Ox O2 Delivery O2 Flow Rate FiO2 08/17/17 12:00 97.8 80 18 96/52 (67) 99 Room Air I&O- Last 24 Hours up to 6 AM 08/18/17 06:00 Intake Total 240 ml Output Total 800 ml Balance -560 ml JENNY SYKES MD Aug 17, 2017 14:35
[2017-08-17] MEDS: ACETAMINOPHEN TAB 650MG DOSE (2X325MG) PO PRN (15:07)
[2017-08-17] MEDS: FLUDROCORTISONE ACETATE 0.1 MG TAB PO SCH (21:07)
[2017-08-17] MEDS: OMEPRAZOLE 20 MG CAP PO SCH (21:08)
[2017-08-17] MEDS: METOPROLOL TART 12.5 MG PER 1/2 TAB PO SCH (21:08)
[2017-08-17] MEDS: diphenhydrAMINE 25 MG CAP PO SCH (21:08)
[2017-08-18] VITALS (7 sets, daily range): BP systolic 86–100; BP diastolic 50–62
[2017-08-18 05:27] LABS: MEAN CORPUSCULAR HEMOGLOBIN 30.3 pg (27.0-33.0); MEAN CORPUSCULAR HGB CONC 33.5 g/dl (32.0-36.5); MEAN CORPUSCULAR VOLUME 90.6 fl (80.0-96.0); PLATELET COUNT, AUTOMATED 274 10^3/uL (150-450); RED CELL DISTRIBUTION WIDTH 13.1 % (11.5-14.5)
[2017-08-18 05:39] LABS: ANION GAP 7 MEQ/L (8-16); BLOOD UREA NITROGEN 6 MG/DL (7-18); CALCIUM LEVEL 8.1 MG/DL (8.5-10.1); CARBON DIOXIDE LEVEL 25 MEQ/L (21-32); CHLORIDE LEVEL 109 MEQ/L (98-107); CREATININE FOR GFR 0.49 MG/DL (0.55-1.02); GLOMERULAR FILTRATION RATE > 60.0 (>60); GLUCOSE, FASTING 81 MG/DL (70-105); MAGNESIUM LEVEL 1.5 MG/DL (1.8-2.4); POTASSIUM SERUM 3.6 MEQ/L (3.5-5.1); SODIUM LEVEL 141 MEQ/L (136-145)
--- NOTE | 2017-08-18 06:12 | CR ---
DATE OF CONSULTATION: 08/16/2017 A 22-year-old 1 female, 25 weeks gestation with a history of supraventricular tachycardia (SVT), status post ablation, since with recurrent syncopal episodes at home in the day preceding admission. She could lose consciousness for a few seconds at any point in time. She denies incontinence or tonic-clonic movements. She denies postictal confusion or head trauma. Blood pressure was often on the low side at the time of episodes, as low as 70/40. She has had occasional episodes of vomiting after her syncopal spells. She has had occasional chest pain and burning pain, which stops and is unrelated to meals. She initially presented to [facility] where she was found to be orthostatic. She received intravenous (IV) fluids with good response. MEDICAL HISTORY: 1. Supraventricular tachycardia. 2. Chronic migraines. 3. Reflex sympathetic dystrophy. 4. Benign breast cysts. 5. Ovarian cyst. SURGICAL HISTORY: 1. Cardiac ablation. 2. Appendectomy. 3. 17 nerve blocks. ALLERGIES: MIDODRINE. SOCIAL HISTORY: Patient denies cigarettes or alcohol, is currently on disability and not working. She lives with her grandmother in [place]. FAMILY HISTORY: Her mother has pulmonary fibrosis. Her father is alive and well. PHYSICAL EXAMINATION: Blood pressure 109/56, pulse 87, respiratory rate 17, afebrile. She is in no apparent distress. Head and neck exam: Normal. Lungs: Clear. Heart: Regular rate and rhythm. Abdomen: Nontender, gravid. heart tones are category 1. Extremities: Nontender. No edema. ASSESSMENT: A 22-year-old 1 female, 25 weeks gestation, presents with recurrent syncopal episodes. The most likely cause of syncopal episodes is hypotension. The patient has underlying cardiac history but her SVT appears to be under control. Will plan to monitor the fetus twice a day while hospitalized here. The patient receives care through the [facility] [employer] with Dr. Infante. All indicated radiology procedures should be performed if thought to be necessary in determining etiology of patient's symptoms. We will continue to follow.
[2017-08-18] MEDS: PRENATAL VITAMINS CHEWABLE TABLET PO SCH (08:40)
[2017-08-18] MEDS: NITROFURANTOIN (MACROBID) 100 MG CAP PO SCH ×2 (08:40→20:37)
[2017-08-18] MEDS ORDERED: MAG SULF 1GM/100ML (MAG RUN) 1 GM in APPROPRIATE DILUENT 1 EA IV ONE (08:45)
--- NOTE | 2017-08-18 08:57 | IPN ---
DATE: 08/18/2017 Ms. Cortes continues to feel about the same. She did not have any one of her major episodes of syncope over the monitor. But she still feels dizzy when upright or walking. She also reports ongoing headache, even though admits that it is a little bit better than it was before. PHYSICAL EXAMINATION: Blood pressure is 92/54, heart rate has been in 70s and 80s. She is afebrile. Saturation 98% on room air. Weight is 86.9 kg. JVP is not up. Lungs are clear to auscultation. Heart: Exam reveals regular rhythm. No gallop or rub. Abdomen is soft, . No peripheral edema. Neurologically she appears completely intact. LABORATORY: As of today her CBC revealed WBC count 9.4, otherwise is normal. Basic metabolic panel is normal as well. ASSESSMENT/PLAN: Ms. Cortes is 22-year-old white female who is currently in her 25th week of . She presented with several syncopal events, but based on interrogation of the reveal monitor she did not have any arrhythmias and we do not see any convincing hypotension, even though her blood pressure is generally low at baseline. At this point I think she can be discharged home from my perspective, there is not much else I can contribute for management but I believe that it is safe for her to go home. I explained to her that it is likely that she will continue to be similarly symptomatic throughout the and it will be good if she has some assistance at home. She has no problem going home, but asked me to get help with obtaining chair that she can sit on when she takes a shower because she becomes very symptomatic when standing in the shower stall. I would think that should be a possible. I tend to see her in the office in approximately a month.
--- NOTE | 2017-08-18 14:18 | IPNPDOC ---
Text Note Date of Service The patient was seen on 08/18/17. NOTE Subjective: Patient states she has some dizziness with standing today. Denies any syncopal episodes. No chest pain/shortness of breath/palpitations. Objective: Vitals: (see below) General: No acute distress, laying comfortably in bed. HEENT: Moist mucous membranes. Neck: No JVD or lymphadenopathy Cardiac: RRR, No murmurs Pulm: Clear to auscultation b/l. No wheezing, rhonchi Abd: NT/ND + BS Ext: No edema or cyanosis Labs (see below) Images: Assessment/Plan 1. Syncope - manual Orthostatic vitals have been negative. H/o SVT s/p ablation ; no recent arrhythmias. Appreciate cardio input. Neuro consulted as well given association with migraines; Dr. Jimenez would like EEG done prior to d/c. MRI/MRV Brain negative, Exact cause of her syncope is not well known at this point, although it can be multifactorial given her history. EEG done today, results pending. 2. H/o chronic migraines - states she has been on many preventative agents with no relief 3. H/o orthostatic hypotension on florinef 4. 25 week gestation - OBGYN consulted for monitoring. 5. ? UTI - states she has a h/o frequent UTIs, and was told she has a UTI at [facility] ; placed on nitrofurantoin. DVT prophy:SCDs VS,Fishbone, I+O VS, Fishbone, I+O Laboratory Tests 08/18/17 04:49 Red Blood Count 3.10 L, Mean Corpuscular Volume 90.6, Mean Corpuscular Hemoglobin 30.3, Mean Corpuscular Hemoglobin Concent 33.5, Red Cell Distribution Width 13.1, Calcium Level 8.1 L Vital Signs Date Time Temp Pulse Resp B/P (MAP) Pulse Ox O2 Delivery O2 Flow Rate FiO2 08/18/17 12:00 87 91/50 (64) 100 96/57 (70) 113 94/58 (70) 08/18/17 12:00 97.1 20 97 Room Air I&O- Last 24 Hours up to 6 AM 08/19/17 06:00 Intake Total 600 ml Output Total 600 ml Balance 0 ml JENNY SYKES MD Aug 18, 2017 14:18
[2017-08-18] MEDS: ACETAMINOPHEN TAB 650MG DOSE (2X325MG) PO PRN (16:02)
[2017-08-18] MEDS: METOPROLOL TART 12.5 MG PER 1/2 TAB PO SCH (20:36)
[2017-08-18] MEDS: diphenhydrAMINE 25 MG CAP PO SCH (20:36)
[2017-08-18] MEDS: OMEPRAZOLE 20 MG CAP PO SCH (20:36)
[2017-08-18] MEDS: FLUDROCORTISONE ACETATE 0.1 MG TAB PO SCH (20:37)
[2017-08-19] VITALS (8 sets, daily range): BP systolic 88–105; BP diastolic 47–64
[2017-08-19 06:09] LABS: MEAN CORPUSCULAR HEMOGLOBIN 29.6 pg (27.0-33.0); MEAN CORPUSCULAR HGB CONC 32.8 g/dl (32.0-36.5); MEAN CORPUSCULAR VOLUME 90.3 fl (80.0-96.0); PLATELET COUNT, AUTOMATED 269 10^3/uL (150-450); RED CELL DISTRIBUTION WIDTH 12.8 % (11.5-14.5); WHITE BLOOD COUNT 7.8 10^3/uL (4.0-10.0)
[2017-08-19 06:46] LABS: ANION GAP 8 MEQ/L (8-16); BLOOD UREA NITROGEN 6 MG/DL (7-18); CARBON DIOXIDE LEVEL 24 MEQ/L (21-32); CHLORIDE LEVEL 109 MEQ/L (98-107); CREATININE FOR GFR 0.48 MG/DL (0.55-1.02); GLOMERULAR FILTRATION RATE > 60.0 (>60); GLUCOSE, FASTING 79 MG/DL (70-105); MAGNESIUM LEVEL 1.7 MG/DL (1.8-2.4); POTASSIUM SERUM 3.8 MEQ/L (3.5-5.1); SODIUM LEVEL 141 MEQ/L (136-145)
[2017-08-19] MEDS: PRENATAL VITAMINS CHEWABLE TABLET PO SCH (09:04)
[2017-08-19] MEDS: NITROFURANTOIN (MACROBID) 100 MG CAP PO SCH ×2 (09:04→20:14)
[2017-08-19] MEDS ORDERED: SODIUM CHLORIDE 0.9% 1000 ML IV ONE (12:15)
--- NOTE | 2017-08-19 15:56 | IPNPDOC ---
Text Note Date of Service The patient was seen on 08/19/17. NOTE Subjective: Patient is a 22 year old female with a PMHx of SVT s/p ablation with Holter monitor, Chronic migraines, Reflex sympathetic dystrophy, Orthostatic hypotension (on Fludrocortisone), who presented to the ED with complaints of fainting. She has a history of fainting >500 times, as she has reported. Patient was seen and examined at the bedside. Currently she notes that she has a episodes of low BP in recently. She noted that her dose of fludrocortisone has not changed in the last few years. Denies chest pain or palpitations. Objective: Vitals (See below) General: Lying in bed, no acute distress, comfortable, AAOx3 HEENT: NC, AT CVS: RRR, +S1S2 Lungs: Fair air entry b/l, -w/r/r Abdomen: Soft, ND, NT Extremities: - Edema, - Calf tenderness Assessment and plan: Syncope - possibly 2/2 orthostatic hypotension - Telemetry negative; no evidence of arrhythmias noted currently - MRI/ MRA brain negative - Dr. Valladares consulted; appreciate their input; Holter without any events - Dr. Camacho (Neurology) consulted; appreciate their input; Pending EEG Hx of Chronic migraines Hx of Orthostatic Hypotension - increased dose of Fludrocortisone Hx of SVT - s/p ablation - c/w Metoprolol - 25 weeks gestation - Junior Sales Representative on consult for monitoring UTI - c/w Nitrofurantoin from [facility] DVT prophylaxis - c/w SCDs VS,Fishbone, I+O VS, Fishbone, I+O Laboratory Tests 08/19/17 05:31 Red Blood Count 3.21 L, Mean Corpuscular Volume 90.3, Mean Corpuscular Hemoglobin 29.6, Mean Corpuscular Hemoglobin Concent 32.8, Red Cell Distribution Width 12.8, Calcium Level 8.0 L Vital Signs Date Time Temp Pulse Resp B/P (MAP) Pulse Ox O2 Delivery O2 Flow Rate FiO2 08/19/17 12:00 97.0 91 18 88/53 (65) 97 Room Air 97.0 I&O- Last 24 Hours up to 6 AM 08/20/17 06:00 Intake Total 1220 ml Output Total 1100 ml Balance 120 ml NIKOLAS GUTIERREZ MD Aug 19, 2017 15:56
[2017-08-19] MEDS: ACETAMINOPHEN TAB 650MG DOSE (2X325MG) PO PRN (17:57)
[2017-08-19] MEDS: ONDANSETRON 4 MG TAB (S0181) PO PRN (17:57)
[2017-08-19] MEDS: FLUDROCORTISONE ACETATE 0.1 MG TAB PO SCH (20:14)
[2017-08-19] MEDS: METOPROLOL TART 12.5 MG PER 1/2 TAB PO SCH (20:14)
[2017-08-19] MEDS: OMEPRAZOLE 20 MG CAP PO SCH (20:15)
[2017-08-19] MEDS: diphenhydrAMINE 25 MG CAP PO SCH (20:15)
[2017-08-20] VITALS (9 sets, daily range): BP systolic 80–112; BP diastolic 51–59
[2017-08-20] MEDS ORDERED: MAG SULF 1GM/100ML (MAG RUN) 1 GM in APPROPRIATE DILUENT 1 EA IV ONE (07:30)
[2017-08-20] MEDS ORDERED: NS 500 ML IV ONE ×2 (07:45→08:45)
[2017-08-20 07:58] LABS: MEAN CORPUSCULAR HEMOGLOBIN 30.3 pg (27.0-33.0); MEAN CORPUSCULAR HGB CONC 33.7 g/dl (32.0-36.5); PLATELET COUNT, AUTOMATED 264 10^3/uL (150-450); RED CELL DISTRIBUTION WIDTH 13.1 % (11.5-14.5); WHITE BLOOD COUNT 8.6 10^3/uL (4.0-10.0)
[2017-08-20] MEDS: NITROFURANTOIN (MACROBID) 100 MG CAP PO SCH ×2 (08:03→20:23)
[2017-08-20] MEDS: PRENATAL VITAMINS CHEWABLE TABLET PO SCH (08:03)
[2017-08-20] MEDS: ACETAMINOPHEN TAB 650MG DOSE (2X325MG) PO PRN (08:13)
[2017-08-20 08:28] LABS: ANION GAP 6 MEQ/L (8-16); BLOOD UREA NITROGEN 7 MG/DL (7-18); CALCIUM LEVEL 8.3 MG/DL (8.5-10.1); CARBON DIOXIDE LEVEL 24 MEQ/L (21-32); CHLORIDE LEVEL 109 MEQ/L (98-107); CREATININE FOR GFR 0.51 MG/DL (0.55-1.02); GLOMERULAR FILTRATION RATE > 60.0 (>60); GLUCOSE, FASTING 78 MG/DL (70-105); MAGNESIUM LEVEL 1.6 MG/DL (1.8-2.4); SODIUM LEVEL 139 MEQ/L (136-145)
[2017-08-20] MEDS: NS 1,000 ML IV SCH (09:07)
[2017-08-20] MEDS: MAG SULF 1GM/100ML (MAG RUN) 1 GM in APPROPRIATE DILUENT 1 EA IV SCH ×2 (09:07→10:25)
--- NOTE | 2017-08-20 14:05 | IPNPDOC ---
Text Note Date of Service The patient was seen on 08/20/17. NOTE Subjective: Patient is a 22 year old female with a PMHx of SVT s/p ablation with Holter monitor, Chronic migraines, Reflex sympathetic dystrophy, Orthostatic hypotension (on Fludrocortisone), who presented to the ED with complaints of fainting. She has a history of fainting >500 times, as she has reported. Patient was seen and examined at the bedside. This morning she was found to have a low BP and was given supplemental fluids. I she denies any episodes of fainting in the last 24 hours. Will continue to adjust IV fluids and recheck orthostatic vital signs. Objective: Vitals (See below) General: Lying in bed, no acute distress, comfortable, AAOx3 HEENT: NC, AT CVS: RRR, +S1S2 Lungs: Fair air entry b/l, -w/r/r Abdomen: Soft, ND, NT Extremities: - Edema, - Calf tenderness Assessment and plan: Syncope - possibly 2/2 orthostatic hypotension - Telemetry negative; no evidence of arrhythmias noted currently - MRI/ MRA brain negative - Dr. Valladares consulted; appreciate their input; Holter without any events - Dr. Camacho (Neurology) consulted; appreciate their input; Pending EEG - Will continue to aggressively provide fluids in addition to continue with adjust dose of Fludrocortisone Hx of Chronic migraines Hx of Orthostatic Hypotension - increased dose of Fludrocortisone Hx of SVT - s/p ablation - c/w Metoprolol - 25 weeks gestation - Web Press Operator on consult for monitoring UTI - c/w Nitrofurantoin from [facility] DVT prophylaxis - c/w SCDs VS,Fishbone, I+O VS, Fishbone, I+O Laboratory Tests 08/20/17 07:47 Red Blood Count 3.10 L, Mean Corpuscular Volume 90.0, Mean Corpuscular Hemoglobin 30.3, Mean Corpuscular Hemoglobin Concent 33.7, Red Cell Distribution Width 13.1, Calcium Level 8.3 L Vital Signs Date Time Temp Pulse Resp B/P (MAP) Pulse Ox O2 Delivery O2 Flow Rate FiO2 08/20/17 11:30 97.5 89 18 91/53 (66) 98 Room Air I&O- Last 24 Hours up to 6 AM 08/21/17 06:00 Intake Total 2340 ml Output Total 1800 ml Balance 540 ml NIKOLAS GUTIERREZ MD Aug 20, 2017 14:05
[2017-08-20] MEDS ORDERED: SODIUM CHLORIDE 0.9% 1000 ML IV ONE (15:00)
[2017-08-20] MEDS ORDERED: SODIUM CHLORIDE NASAL 0.65% SPRAY BTL (OCEAN) PRN (17:30)
[2017-08-20] MEDS: diphenhydrAMINE 25 MG CAP PO SCH (20:21)
[2017-08-20] MEDS: FLUDROCORTISONE ACETATE 0.1 MG TAB PO SCH (20:22)
[2017-08-20] MEDS: OMEPRAZOLE 20 MG CAP PO SCH (20:23)
[2017-08-20] MEDS: METOPROLOL TART 12.5 MG PER 1/2 TAB PO SCH (20:23)
--- NOTE | 2017-08-20 21:15 | EEG ---
DATE OF PROCEDURE: 08/18/2017 REFERRING PHYSICIAN: Justin Boyce MD DIAGNOSIS: Syncope. EEG NUMBER: [id number] HISTORY: Patient is a 22-year-old woman with history of migraines and passing-out spells. This EEG was done to rule out epileptic potential. She is currently taking vitamins, Tylenol, fludrocortisone, Prilosec, metoprolol, etc. TECHNICAL DESCRIPTION: This digital EEG was recorded by 21 scalp, ear, and two EKG electrodes and was reviewed in bipolar and referential montages following reformatting in 10-20 international electrode placement system. INTERPRETATION: Patient was noted to be in awake and drowsy states during this EEG. Resting awake background consisted of 10 Hz alpha activity measuring 15-20 microvolts in amplitude, which was symmetric and reactive to eye opening. Attenuation of posterior dominant rhythm was seen during transition to drowsiness. No sleep was achieved. Hyperventilation and photic stimulation remained unremarkable. EKG revealed normal sinus rhythm. No focal, lateralizing, or epileptiform abnormalities were seen. No clinical or electrographic seizures were recorded. CONCLUSION: This EEG in awake, drowsy states is within normal limits.
[2017-08-21] VITALS (9 sets, daily range): BP systolic 95–140; BP diastolic 51–68
[2017-08-21] MEDS: NS 1,000 ML IV SCH (00:01)
[2017-08-21 06:07] LABS: MEAN CORPUSCULAR HEMOGLOBIN 30.1 pg (27.0-33.0); MEAN CORPUSCULAR HGB CONC 33.1 g/dl (32.0-36.5); PLATELET COUNT, AUTOMATED 244 10^3/uL (150-450); WHITE BLOOD COUNT 8.6 10^3/uL (4.0-10.0)
[2017-08-21 06:30] LABS: ANION GAP 8 MEQ/L (8-16); BLOOD UREA NITROGEN 5 MG/DL (7-18); CALCIUM LEVEL 7.9 MG/DL (8.5-10.1); CARBON DIOXIDE LEVEL 23 MEQ/L (21-32); CHLORIDE LEVEL 111 MEQ/L (98-107); CREATININE FOR GFR 0.42 MG/DL (0.55-1.02); GLOMERULAR FILTRATION RATE > 60.0 (>60); GLUCOSE, FASTING 79 MG/DL (70-105); MAGNESIUM LEVEL 1.7 MG/DL (1.8-2.4); POTASSIUM SERUM 3.9 MEQ/L (3.5-5.1); SODIUM LEVEL 142 MEQ/L (136-145)
[2017-08-21] MEDS: NITROFURANTOIN (MACROBID) 100 MG CAP PO SCH ×2 (08:04→20:16)
[2017-08-21] MEDS: MAGNESIUM OXIDE 400 MG TAB (MAG-OX) PO SCH ×2 (08:04→20:15)
[2017-08-21] MEDS: MAG SULF 1GM/100ML (MAG RUN) 1 GM in APPROPRIATE DILUENT 1 EA IV SCH ×2 (08:05→09:11)
[2017-08-21] MEDS: PRENATAL VITAMINS CHEWABLE TABLET PO SCH (08:05)
--- NOTE | 2017-08-21 11:22 | IPNPDOC ---
Text Note Date of Service The patient was seen on 08/21/17. NOTE Subjective: Patient is a 22 year old female with a PMHx of SVT s/p ablation with Holter monitor, Chronic migraines, Reflex sympathetic dystrophy, Orthostatic hypotension (on Fludrocortisone), who presented to the ED with complaints of fainting. She has a history of fainting >500 times, as she has reported. Patient was seen and examined at the bedside. Patient has denied any feelings of dizziness of syncope over the last 72 hours. BP has improved while on IV fluid hydration. Orthostatic vital signs are negative. Will discontinue IV fluids today and continue with PT. Objective: Vitals (See below) General: Lying in bed, no acute distress, comfortable, AAOx3 HEENT: NC, AT CVS: RRR, +S1S2 Lungs: Fair air entry b/l, -w/r/r Abdomen: Soft, ND, NT Extremities: - Edema, - Calf tenderness Assessment and plan: Syncope - possibly 2/2 orthostatic hypotension - Telemetry negative; no evidence of arrhythmias noted currently - MRI/ MRA brain negative, EEG with normal findings - Dr. Valladares consulted; appreciate their input; Holter without any events - Dr. Camacho (Neurology) consulted; appreciate their input - c/w Adjusted dose of Fludrocortisone - Will stop IV fluid hydration today - Will c/w Physical therapy Hx of Chronic migraines Hx of Orthostatic Hypotension - c/w Fludrocortisone at 0.5 - Reviewed Midodrine, however it remains a category C medication; will avoid at this time Hx of SVT - s/p ablation - c/w Metoprolol - 25 weeks gestation - Sumo Wrestler on consult for monitoring UTI - c/w Nitrofurantoin from [facility] DVT prophylaxis - c/w SCDs VS,Fishbone, I+O VS, Fishbone, I+O Laboratory Tests 08/21/17 05:43 Red Blood Count 2.79 L, Mean Corpuscular Volume 91.0, Mean Corpuscular Hemoglobin 30.1, Mean Corpuscular Hemoglobin Concent 33.1, Red Cell Distribution Width 13.0, Calcium Level 7.9 L Vital Signs Date Time Temp Pulse Resp B/P (MAP) Pulse Ox O2 Delivery O2 Flow Rate FiO2 08/21/17 08:00 Room Air 08/21/17 08:00 98.1 92 16 115/58 (39) 100 I&O- Last 24 Hours up to 6 AM 08/22/17 06:00 Intake Total 600 ml Output Total 1000 ml Balance -400 ml NIKOLAS GUTIERREZ MD Aug 21, 2017 11:22
[2017-08-21] MEDS ORDERED: SLF 3 ML SYR IV PRN (12:15)
[2017-08-21] MEDS: SLF 3 ML SYR IV SCH ×2 (12:57→20:16)
[2017-08-21] MEDS: diphenhydrAMINE 25 MG CAP PO SCH (20:14)
[2017-08-21] MEDS: FLUDROCORTISONE ACETATE 0.1 MG TAB PO SCH (20:14)
[2017-08-21] MEDS: METOPROLOL TART 12.5 MG PER 1/2 TAB PO SCH (20:15)
[2017-08-21] MEDS: OMEPRAZOLE 20 MG CAP PO SCH (20:16)
[2017-08-22] MEDS: SLF 3 ML SYR IV SCH ×2 (05:53→14:00)
[2017-08-22 06:00] VITALS: BP_SYST 102; BP_SYST 111; BP_SYST 113; BP_DIAS 62; BP_DIAS 63; BP_DIAS 64
[2017-08-22 06:28] LABS: MEAN CORPUSCULAR HEMOGLOBIN 30.4 pg (27.0-33.0); MEAN CORPUSCULAR HGB CONC 33.7 g/dl (32.0-36.5); MEAN CORPUSCULAR VOLUME 90.4 fl (80.0-96.0); PLATELET COUNT, AUTOMATED 261 10^3/uL (150-450); RED CELL DISTRIBUTION WIDTH 12.9 % (11.5-14.5)
[2017-08-22 06:48] LABS: ANION GAP 8 MEQ/L (8-16); BLOOD UREA NITROGEN 4 MG/DL (7-18); CARBON DIOXIDE LEVEL 24 MEQ/L (21-32); CHLORIDE LEVEL 110 MEQ/L (98-107); CREATININE FOR GFR 0.43 MG/DL (0.55-1.02); GLOMERULAR FILTRATION RATE > 60.0 (>60); GLUCOSE, FASTING 79 MG/DL (70-105); MAGNESIUM LEVEL 1.7 MG/DL (1.8-2.4); POTASSIUM SERUM 3.6 MEQ/L (3.5-5.1); SODIUM LEVEL 142 MEQ/L (136-145)
[2017-08-22] MEDS ORDERED: MAG400TA PO (08:10)
[2017-08-22] MEDS ORDERED: FLUD0.1T PO (08:10)
[2017-08-22] MEDS: NITROFURANTOIN (MACROBID) 100 MG CAP PO SCH (08:31)
[2017-08-22] MEDS: PRENATAL VITAMINS CHEWABLE TABLET PO SCH (08:32)
[2017-08-22] MEDS ORDERED: MAGNESIUM OXIDE 400 MG TAB (MAG-OX) PO SCH (09:00)
--- NOTE | 2017-08-22 11:29 | DSES ---
DATE OF ADMISSION: 08/18/2017 DATE OF DISCHARGE: 08/22/2017 ATTENDING PHYSICIAN: Dr. Nadege Guzmán and Dr. Justin Boyce PRIMARY CARE PHYSICIAN: None listed. REFERRING PHYSICIAN: None. CONSULTING PHYSICIAN: 1. Dr. Camacho. 2. Dr. Sims. 3. Dr. Valladares. CONDITION ON DISCHARGE: Stable. FINAL DIAGNOSIS: Syncope, likely secondary to orthostatic hypotension. PROCEDURES: None. HISTORY OF PRESENT ILLNESS: The patient is a 22-year-old, female with a past medical history of supraventricular tachycardia (SVT) status post ablation with Holter monitor, chronic migraines, reflex sympathetic dystrophy, orthostatic hypotension, on fludrocortisone, who presented to the emergency room (ER) with complaints of fainting. She has history of fainting over 500 times as she has reported. HOSPITAL COURSE: 1. Syncope, possibly secondary to orthostatic hypotension. Telemetry has been negative. She has been discontinued from telemetry monitoring. MRI and MRA of the brain has been negative. Electroencephalogram (EEG) revealed normal findings. Dr. Valladares has been consulted, appreciate his input. Holter without any events. Dr. Camacho, neurology, has been consulted, appreciate his input. Continue with adjusted dose of fludrocortisone. Has received IV fluid hydration and has been working with physical therapy with IV fluid hydration. Her blood pressure has normalized and orthostatic vital signs on repeat have been negative. The patient has been cleared by physical therapy on 08/21/2017 and the patient will be discharged home on 08/22/2017. The patient has been advised to follow up with her primary care provider, Dr. Valladares, and neurology within the next 7 days. She has been advised to remain compliant with treatment and medications. 2. History of chronic migraines. 3. History of orthostatic hypotension. Continue with fludrocortisone 0.5. 4. History of SVT. Continue with metoprolol, status post ablation. 5. at 25 weeks gestation. OB-MILL OPERATOR HELPER has been consulted for monitoring. Will followup with her own OB-MILL OPERATOR HELPER physician as an outpatien.t 6. Urinary tract infection (UTI). Has received 8 days of nitrofurantoin from [facility]. Will discontinue antibiotics at this point. 7. Deep vein thrombosis (DVT) prophylaxis. Continue sequential compression devices. DISCHARGE MEDICATIONS: The patient will be discharged home with the following medication list: - fludrocortisone 0.5 mg by mouth at bedtime - magnesium oxide 800 mg by mouth twice a day - diphenhydramine 50 mg by mouth at bedtime - metoprolol tartrate 25 mg by mouth at bedtime - multivitamin/ supplement 1 tablet by mouth daily - omeprazole 40 mg by mouth at bedtime - ondansetron 4 mg by mouth three times a day as needed nausea or vomiting DISCHARGE INSTRUCTIONS: The patient has been advised to followup with her primary medical provider, cardiology, neurology and OB-MILL OPERATOR HELPER within the next 7 days. She has been advised to remain compliant with treatment and medications and to return to the emergency room if she experiences any problems. Time spent on discharge greater than 35 minutes. SARTHAK
[2017-08-22 14:00] VITALS: BP 111/64
== END 2017-08-22 15:10 | disposition home health service (06) | DRG 566 ==
LOC: INTOOBSV 17:30 → M PCU 17:30 → OBSVTOIN 08-18 08:56 → M MS4PR 08-21 21:02
PROVIDERS: ADMIT Internal Medicine; ATTEND Internal Medicine
DX: O99.412 Diseases of the circulatory system complicating pregnancy, second trimester (principal); I95.89 Other hypotension; O99.352 Diseases of the nervous system complicating pregnancy, second trimester; Z3A.25 25 weeks gestation of pregnancy; G43.711 Chronic migraine without aura, intractable, with status migrainosus; G90.50 Complex regional pain syndrome I, unspecified; G44.201 Tension-type headache, unspecified, intractable; I95.1 Orthostatic hypotension; Z88.8 Allergy status to other drugs, medicaments and biological substances

== ENCOUNTER 2017-11-06 12:16 | Outpatient (CLI) | payer OTHER ==
[2017-11-06] MEDS: LR 1,000 ML IV (14:01)
[2017-11-06 14:14] LABS: HEMATOCRIT 28.1 % (36.0-47.0); HEMOGLOBIN 9.2 g/dl (12.0-16.0); MEAN CORPUSCULAR HEMOGLOBIN 27.1 pg (27.0-33.0); MEAN CORPUSCULAR HGB CONC 32.7 g/dl (32.0-36.5); MEAN CORPUSCULAR VOLUME 82.9 fl (80.0-96.0); PLATELET COUNT, AUTOMATED 295 10^3/uL (150-450); RED BLOOD COUNT 3.39 10^6/uL (4.00-5.40); RED CELL DISTRIBUTION WIDTH 13.1 % (11.5-14.5); WHITE BLOOD COUNT 6.7 10^3/uL (4.0-10.0)
[2017-11-06 14:19] LABS: APPEARANCE, URINE CLOUDY (CLEAR); BACTERIA, URINE AUTO 2+ (NEGATIVE); BILIRUBIN, URINE AUTO NEGATIVE (NEGATIVE); BLOOD, URINE BLOOD NEGATIVE (NEGATIVE); COLOR, URINE YELLOW (YELLOW); GLUCOSE, URINE (UA) AUTO NEGATIVE (NEGATIVE); KETONE, URINE AUTO NEGATIVE (NEGATIVE); LEUKOCYTE ESTERASE, URINE AUTO 3+ (NEGATIVE); MUCUS, URINE SMALL (NEGATIVE); NITRITE, URINE AUTO NEGATIVE (NEGATIVE); PROTEIN, URINE AUTO NEGATIVE (NEGATIVE); RBC, URINE AUTO 2 /HPF (0-3); SPECIFIC GRAVITY URINE AUTO 1.021 (1.002-1.035); SQUAMOUS EPITHELIAL CELL UR AU 7 /HPF (0-6); UROBILINOGEN, URINE AUTO 0.2 mg/dL (0.0-2.0); WBC, URINE AUTO 10 /HPF (0-3)
[2017-11-06 14:55] LABS: ANION GAP 8 MEQ/L (8-16); BLOOD UREA NITROGEN 7 MG/DL (7-18); CALCIUM LEVEL 8.1 MG/DL (8.5-10.1); CARBON DIOXIDE LEVEL 23 MEQ/L (21-32); CHLORIDE LEVEL 111 MEQ/L (98-107); CREATININE FOR GFR 0.56 MG/DL (0.55-1.02); FREE T4 1.08 NG/DL (0.76-1.46); GLOMERULAR FILTRATION RATE > 60.0 (>60); GLUCOSE, FASTING 78 MG/DL (70-100); POTASSIUM SERUM 4.1 MEQ/L (3.5-5.1); SODIUM LEVEL 142 MEQ/L (136-145); THYROID STIMULATING HORMONE 0.202 uIU/ML (0.358-3.740)
== END 2017-11-06 15:24 | disposition home or self-care (01) ==
LOC: M LDO 12:16
DX: O99.89 Other specified diseases and conditions complicating pregnancy, childbirth and the puerperium (principal); I49.8 Other specified cardiac arrhythmias; Z86.79 Personal history of other diseases of the circulatory system; Z86.69 Personal history of other diseases of the nervous system and sense organs; Z79.899 Other long term (current) drug therapy; Z88.8 Allergy status to other drugs, medicaments and biological substances; Z3A.38 38 weeks gestation of pregnancy
CPT/HCPCS: 96360

== ENCOUNTER 2017-11-25 21:43 | Emergency (ER) | payer OTHER ==
[2017-11-25] MEDS: NS 1,000 ML IV (22:45)
[2017-11-25 23:05] LABS: BASO % 0.5 % (0.0-1.0); EOS # 0.3 10^3/uL (0.0-0.50); EOS % 3.4 % (0.0-3.0); HEMATOCRIT 29.6 % (36.0-47.0); HEMOGLOBIN 9.3 g/dl (12.0-16.0); IMMATURE GRANULOCYTE % 0.2 % (0-3.0); LYMPH # 2.7 10^3/uL (1.5-6.5); MEAN CORPUSCULAR HEMOGLOBIN 25.7 pg (27.0-33.0); MEAN CORPUSCULAR HGB CONC 31.4 g/dl (32.0-36.5); MEAN CORPUSCULAR VOLUME 81.8 fl (80.0-96.0); MONO # 0.5 10^3/uL (0.0-0.8); MONO % 5.6 % (0.0-5.0); NEUTROPHILS # 5.2 10^3/uL (1.8-7.7); NEUTROPHILS % 59.3 % (36.0-66.0); PLATELET COUNT, AUTOMATED 463 10^3/uL (150-450); RED BLOOD COUNT 3.62 10^6/uL (4.00-5.40); RED CELL DISTRIBUTION WIDTH 14.6 % (11.5-14.5); WHITE BLOOD COUNT 8.7 10^3/uL (4.0-10.0)
[2017-11-25 23:14] LABS: INR 1.06; PROTHROMBIN TIME 13.9 SECONDS (12.4-14.5)
[2017-11-25 23:15] LABS: PARTIAL THROMBOPLASTIN TIME 32.9 SECONDS (26.8-37.9)
[2017-11-25 23:32] LABS: ANION GAP 10 MEQ/L (8-16); BLOOD UREA NITROGEN 10 MG/DL (7-18); CALCIUM LEVEL 8.6 MG/DL (8.5-10.1); CARBON DIOXIDE LEVEL 23 MEQ/L (21-32); CHLORIDE LEVEL 107 MEQ/L (98-107); CREATININE FOR GFR 0.81 MG/DL (0.55-1.30); GLOMERULAR FILTRATION RATE > 60.0 (>60); GLUCOSE, FASTING 85 MG/DL (70-100); POTASSIUM SERUM 3.4 MEQ/L (3.5-5.1); SODIUM LEVEL 140 MEQ/L (136-145)
[2017-11-25 23:35] LABS: AMORPHOUS SEDIMENT RFX LARGE (NEGATIVE); KETONE, URINE AUTO RFX NEGATIVE (NEGATIVE); LEUKOCYTE ESTERASE UR AUTO RFX 3+ (NEGATIVE); NITRITE, URINE AUTO RFX NEGATIVE (NEGATIVE); RBC, URINE AUTO RFX TNTC /HPF (0-3); SPECIFIC GRAVITY UR AUTO RFX 1.024 (1.002-1.035); SQUAM EPITHELIAL CELL UR AURFX 0 /HPF (0-6); WBC, URINE AUTO RFX TNTC /HPF (0-3)
== END 2017-11-26 00:38 | disposition home or self-care (01) ==
LOC: M ED 11-26 00:38
DX: O72.2 Delayed and secondary postpartum hemorrhage (principal); N93.8 Other specified abnormal uterine and vaginal bleeding; R93.8 Abnormal findings on diagnostic imaging of other specified body structures; G90.50 Complex regional pain syndrome I, unspecified; I49.8 Other specified cardiac arrhythmias; F41.9 Anxiety disorder, unspecified; F33.9 Major depressive disorder, recurrent, unspecified; Z79.899 Other long term (current) drug therapy; Z88.8 Allergy status to other drugs, medicaments and biological substances; Z87.11 Personal history of peptic ulcer disease; Z98.890 Other specified postprocedural states; Z86.69 Personal history of other diseases of the nervous system and sense organs
CPT/HCPCS: 76856

== ENCOUNTER 2018-05-08 10:30 | Day surgery (SDC) | payer MEDICAID, OTHER ==
[2018-05-08] MEDS: LR 1,000 ML IV ×2 (11:05)
[2018-05-08 11:09] LABS: HEMATOCRIT 40.3 % (36.0-47.0); HEMOGLOBIN 13.7 g/dl (12.0-15.5); MEAN CORPUSCULAR HEMOGLOBIN 30.2 pg (27.0-33.0); MEAN CORPUSCULAR VOLUME 88.8 fl (80.0-96.0); PLATELET COUNT, AUTOMATED 271 10^3/uL (150-450); RED BLOOD COUNT 4.54 10^6/uL (4.00-5.40); RED CELL DISTRIBUTION WIDTH 12.6 % (11.5-14.5); WHITE BLOOD COUNT 5.4 10^3/uL (4.0-10.0)
[2018-05-08 11:18] LABS: CONTROL LINE HCG INT CTR LINE PRESENT; HCG, SERUM QUALITATIVE NEGATIVE (NEGATIVE)
[2018-05-08] MEDS ORDERED: LIDOCAINE 2% INJ 100 MG/5 ML SDV (FOR ANES.) As Ordered ×2 (11:45)
[2018-05-08] MEDS ORDERED: ROCURONIUM BROMIDE 50 MG/5 ML VIAL As Ordered ×2 (11:45)
[2018-05-08] MEDS ORDERED: fentaNYL 250 MCG/5 ML INJECTION (J3010) As Ordered ×2 (11:45)
[2018-05-08] MEDS ORDERED: PROPOFOL 200 MG/20 ML VIAL As Ordered ×2 (11:45)
[2018-05-08] MEDS ORDERED: MIDAZOLAM INJ 2 MG/2 ML VIAL (J2250) As Ordered ×2 (11:46)
[2018-05-08] MEDS ORDERED: BUPIVACAINE HCL 0.25% 30 ML VIAL As Ordered ×2 (12:06)
[2018-05-08] MEDS: SILVER NITRATE APPLICATOR As Ordered ×2 (12:06)
[2018-05-08] MEDS ORDERED: dexameTHASONE 4 MG/ML 1ML VIAL (J1100) As Ordered ×4 (12:27)
[2018-05-08] MEDS ORDERED: KETOROLAC 60 MG/2 ML VIAL (J1885) As Ordered ×2 (12:37)
[2018-05-08] MEDS ORDERED: ONDANSETRON 4MG/2ML VIAL (J2405) As Ordered ×2 (12:37)
[2018-05-08] MEDS ORDERED: GLYCOPYRROLATE INJ 0.2 MG/ML 2 ML VIAL As Ordered ×2 (12:38)
[2018-05-08] MEDS ORDERED: METOCLOPRAMIDE INJ 10MG/2ML VIAL (J2765) As Ordered ×2 (13:02)
[2018-05-08] MEDS: fentaNYL 100 MCG/2 ML INJECTION (J3010) IV ×8 (13:45→14:00)
[2018-05-08] MEDS ORDERED: ONDANSETRON 4MG/2ML VIAL (J2405) IV ×2 (13:45)
[2018-05-08] MEDS ORDERED: LR 1,000 ML IV ×4 (13:45)
[2018-05-08] MEDS: PERCOCET 5MG/325MG TAB PO ×2 (13:50)
== END 2018-05-08 16:00 | disposition home or self-care (01) ==
LOC: M SDC 10:30
DX: Z30.2 Encounter for sterilization (principal); N83.202 Unspecified ovarian cyst, left side; F32.9 Major depressive disorder, single episode, unspecified; F41.9 Anxiety disorder, unspecified; Z79.899 Other long term (current) drug therapy; D64.9 Anemia, unspecified; R07.9 Chest pain, unspecified
CPT/HCPCS: 58661

== ENCOUNTER → 2019-01-27 | Outpatient (CLI) | payer OTHER ==
[~2019-01-27] MED LIST changes: -/ONDA4TA OR; +BENA25CA4 PO; +COLA100C5 PO; -DOCQ100C PO; +DOCQ100C5 PO; +EFFE75CA2 PO; +IBUP80TA PO; +IRON65TA PO; +MAG400TA PO; +MAGN500C PO; +METO1TAB87 PO; +METO25TA4 PO; +ONDA-1 OR; +ONDA4TAB5 PO; +PERCOCET PO; +PREN1CHW4 PO; +TRAZ-163 PO; +VITA1TAB23 PO
== END ==
LOC: M RAD 07:41
PROVIDERS: ATTEND Orthopaedic Surgery Sports Medicine
DX: Z53.8 Procedure and treatment not carried out for other reasons (principal); M25.561 Pain in right knee

== ENCOUNTER → 2019-02-05 | Outpatient (CLI) | payer OTHER | LOC: M RAD 14:01 | PROVIDERS: ATTEND Orthopaedic Surgery Sports Medicine | DX: M25.561 Pain in right knee (principal); Z53.9 Procedure and treatment not carried out, unspecified reason ==

== ENCOUNTER → 2019-04-09 | Outpatient (REF) | payer OTHER ==
[~2019-04-09] MED LIST changes: +K-TA10TA2 PO
== END ==
LOC: M LAB REF 12:41
PROVIDERS: ATTEND Internal Medicine Nephrology
DX: I95.1 Orthostatic hypotension (principal)

== ENCOUNTER → 2019-04-28 | Outpatient (CLI) | payer OTHER ==
[~2019-04-28] MED LIST changes: +CYSTO-CONRAY II 17.2% 250ML VIAL (Q9958) As Ordered ONE
--- NOTE | 2019-04-28 16:26 | REP ---
Urinary tract sonogram: History: Chronic kidney disease. History of urinary tract infection. Comparison: Comparison sonography March 13, 2019 showed no abnormality. Findings: Scanning at the level of the urinary bladder shows no abnormality. Incidental note is made of a 3.3 x 3.6 x 3.4 cm right ovarian cyst which appears anechoic. Renal cortical echogenicity pattern is normal bilaterally and contours are smooth. There is no evidence of hydronephrosis, cyst, mass, or calculus in either kidney. The right kidney measures 10.3 x 4.5 x 4.1 cm. Left renal dimensions are 10.8 x 5.2 x 5.1 cm. Impression: 3.6 cm simple cyst right ovary, otherwise negative urinary tract sonography. Electronically Signed by Panfilo Lawrence MD 04/28/2019 04:18 P
--- NOTE | 2019-04-28 16:39 | REP ---
Voiding cystourethrogram: The bladder is filled with any urethral catheter. The filled urinary bladder including oblique views is unremarkable. Blunting is accomplished through a normal-appearing female urethra. No vesicoureteral reflux is identified. The postvoid film demonstrates complete bladder emptying and no vesicoureteral reflux. Impression: Essentially negative voiding cystourethrogram. Electronically Signed by Danny Latham MD 04/28/2019 04:31 P
== END ==
LOC: M RAD 14:00
PROVIDERS: ATTEND Internal Medicine Nephrology
DX: N18.1 Chronic kidney disease, stage 1 (principal); M54.5 Low back pain; Z87.440 Personal history of urinary (tract) infections
CPT/HCPCS: 74455; 76775; Q9958

== ENCOUNTER → 2020-02-21 | Outpatient (CLI) | payer OTHER ==
[~2020-02-21] MED LIST changes: -CYSTO-CONRAY II 17.2% 250ML VIAL (Q9958) As Ordered ONE; +NAPR-885 PO; -OMEP40CA2 PO; +OMEP40CA97 PO; +ONDA-83 PO; -ONDA4TAB5 PO; +ONDA4TAB6 PO; +SUMA100T2 PO; -TRAZ-163 PO; +TRAZ-257 PO
== END ==
LOC: M WHC 14:44
PROVIDERS: ATTEND Obstetrics & Gynecology
DX: R10.2 Pelvic and perineal pain (principal)

== ENCOUNTER 2020-02-23 22:20 | Emergency (ER) | payer OTHER ==
[~2020-02-23] VITALS: Ht 180.3 cm; Wt 94.7 kg
[~2020-02-23 22:20] MED LIST changes: -NAPR-885 PO; -ONDA4TAB6 PO; -SUMA100T2 PO
[2020-02-23] MEDS ORDERED: SUMA100T2 PO (22:29)
[2020-02-23 23:11] LABS: BASO # 0.1 10^3/uL (0.0-0.2); BASO % 0.7 % (0.0-1.0); EOS # 0.3 10^3/uL (0.0-0.5); EOS % 4.7 % (0.0-3.0); HEMATOCRIT 34.7 % (36.0-47.0); HEMOGLOBIN 11.5 g/dl (12.0-15.5); LYMPH # 2.7 10^3/uL (1.5-5.0); MEAN CORPUSCULAR HEMOGLOBIN 28.6 pg (27.0-33.0); MEAN CORPUSCULAR HGB CONC 33.1 g/dl (32.0-36.5); MEAN CORPUSCULAR VOLUME 86.3 fl (80.0-96.0); MONO # 0.4 10^3/uL (0.0-0.8); MONO % 6.4 % (0.0-5.0); NEUTROPHILS # 3.4 10^3/uL (1.5-8.5); NEUTROPHILS % 49.1 % (36.0-66.0); PLATELET COUNT, AUTOMATED 252 10^3/uL (150-450); RED BLOOD COUNT 4.02 10^6/uL (4.00-5.40); WHITE BLOOD COUNT 6.8 10^3/uL (4.0-10.0)
[2020-02-23] MEDS ORDERED: NS 1,000 ML IV ONE (23:15)
[2020-02-23] MEDS ORDERED: KETOROLAC 30 MG/ML 1ML VIAL IV ONE (23:15)
[2020-02-23] MEDS ORDERED: ONDANSETRON 4MG/2ML VIAL IV ONE (23:15)
[2020-02-23 23:37] LABS: ALBUMIN 3.5 GM/DL (3.2-5.2); ALT/SGPT 14 U/L (12-78); BILIRUBIN,DIRECT < 0.1 MG/DL (0.0-0.2); BILIRUBIN,TOTAL 0.3 MG/DL (0.2-1.0); BLOOD UREA NITROGEN 9 MG/DL (7-18); CALCIUM LEVEL 8.2 MG/DL (8.5-10.1); CARBON DIOXIDE LEVEL 27 MEQ/L (21-32); CHLORIDE LEVEL 105 MEQ/L (98-107); CREATININE FOR GFR 0.87 MG/DL (0.55-1.30); GLOMERULAR FILTRATION RATE > 60.0 (>60); GLUCOSE, FASTING 90 MG/DL (70-100); LIPASE 98 U/L (73-393); POTASSIUM SERUM 3.7 MEQ/L (3.5-5.1); SODIUM LEVEL 138 MEQ/L (136-145)
[2020-02-23] MEDS ORDERED: ISOVUE-370 76% 100ML VIAL As Ordered ONE (23:37)
[2020-02-23 23:47] LABS: HCG, SERUM QUALITATIVE NEGATIVE (NEGATIVE)
--- NOTE | 2020-02-23 23:59 | REPVR ---
PROCEDURE INFORMATION: Exam: US Pelvis Complete, Transabdominal and US Pelvis, Transvaginal Exam date and time: 02/23/2020 11:43 PM Age: 24 years old Clinical indication: Pelvic pain; Additional info: B/l lower quad abd pain - left > right TECHNIQUE: Imaging protocol: Real-time transabdominal and transvaginal pelvic ultrasound (complete) with image documentation. Transvaginal imaging was used for better evaluation of the endometrium and adnexa. COMPARISON: US PELVIC NON-OB COMPLETE 11/25/2017 11:15 PM FINDINGS: Uterus/cervix: Uterus measures 7.0 x 4.5 x 5.7 cm. Endometrium measures 16 mm. Small amount of fluid within the endometrial canal. Right adnexa: Right ovary measures 3.9 x 2.1 x 3.2 centimetres. Small complex cyst involving the right ovary measures up to 1.8 centimetres. Negative for right ovarian torsion. Left adnexa: Left ovary measures 2.3 x 1.6 x 2.1 centimetres. Left ovary appears within normal limits. Free fluid: None. Bladder: Normal. IMPRESSION: 1. No acute abnormality. 2. Right ovarian complex cyst measures up to 1.8 centimetres. Follow-up in 2 menstrual cycles may be considered. 3. Mild endometrial thickening with small amount of fluid within the endometrial canal. Electronically signed by: Adolph Vega On 02/23/2020 23:58:30 PM
--- NOTE | 2020-02-24 00:13 | REPVR ---
PROCEDURE INFORMATION: Exam: CT Abdomen And Pelvis With Contrast Exam date and time: 02/23/2020 11:07 PM Age: 24 years old Clinical indication: Abdominal pain; Localized; Lower; Additional info: B/l lower quadrant abd pain TECHNIQUE: Imaging protocol: Computed tomography of the abdomen and pelvis with intravenous contrast. Radiation optimization: All CT scans at this facility use at least one of these dose optimization techniques: automated exposure control; mA and/or kV adjustment per patient size (includes targeted exams where dose is matched to clinical indication); or iterative reconstruction. Contrast material: ISO; Contrast volume: 100 ml; Contrast route: AC; COMPARISON: US PELVIC NON-OB COMPLETE 02/23/2020 11:19 PM FINDINGS: Liver: Normal. No mass. Gallbladder and bile ducts: Normal. No calcified stones. No ductal dilation. Pancreas: Normal. No ductal dilation. Spleen: Normal. No splenomegaly. Adrenals: Normal. No mass. Kidneys and ureters: Normal. No hydronephrosis. Stomach and bowel: Unremarkable. No obstruction. No mucosal thickening. Appendix: Previous appendectomy. Intraperitoneal space: Trace free fluid within the pelvis. Vasculature: Unremarkable. No abdominal aortic aneurysm. Lymph nodes: Unremarkable. No enlarged lymph nodes. Bladder: Unremarkable as visualized. Reproductive: Unremarkable as visualized. Bones/joints: Unremarkable. No acute fracture. Soft tissues: Unremarkable. IMPRESSION: No acute abnormality. Electronically signed by: Adolph Vega On 02/24/2020 00:13:00 AM
[2020-02-24] MEDS ORDERED: NAPR-885 PO (01:09)
[2020-02-24] MEDS ORDERED: ONDA4TAB6 PO (01:09)
[2020-02-24 02:30] VITALS: BP 128/84
[2020-02-24 02:31] LABS: CHLAMYDIA DNA AMPLIFICATION NEGATIVE (NEGATIVE); GC DNA AMPLIFICATION NEGATIVE (NEGATIVE)
--- NOTE | 2020-02-24 22:11 | ECGEPIP ---
[facility] - ED Test Date: 2020-02-23 Pat Name: KAELYN PINK Department: Room: - Gender: Female Unitizer: KACEY : 1995 Requested By: PATI Qureshi Order Number: [id number] Reading MD: Brody Ellis Measurements Intervals Midnight Rate: 71 P: 59 WA: 135 QRS: 34 QRSD: 92 T: -49 QT: 418 QTc: 456 Interpretive Statements SINUS RHYTHM INCOMPLETE RIGHT BUNDLE BRANCH BLOCK NSTTW ABNORMALITIES SIMILAR TO 08/16/17 Electronically Signed on 02-24-2020 22:10:54 EDT by Brody Ellis
--- NOTE | 2020-02-25 11:55 | ED PDOC ---
Post-Departure Follow-Up pelvic us faxed to [facility] for fu Juan Manuel De La Cruz MD February 25, 2020 11:55
== END 2020-02-24 02:31 | disposition home or self-care (01) ==
LOC: M ED 22:20
DX: N83.201 Unspecified ovarian cyst, right side (principal); I25.10 Atherosclerotic heart disease of native coronary artery without angina pectoris; F33.9 Major depressive disorder, recurrent, unspecified; F41.1 Generalized anxiety disorder; I49.8 Other specified cardiac arrhythmias; Z79.899 Other long term (current) drug therapy; Z88.8 Allergy status to other drugs, medicaments and biological substances
CPT/HCPCS: 74177; 76830; 76856; 80053; 81001; 82248; 83690; 84703; 85025; 87086; 87491; 87591; 93005; 93976; 96361; 96374; 96375; 99284; J1885; J2405; Q9967

== ENCOUNTER → 2020-03-07 | Outpatient (REF) | payer OTHER ==
[~2020-03-07] MED LIST changes: +NAPR-885 PO; +ONDA4TAB6 PO; +SUMA100T2 PO
[2020-03-07 22:54] LABS: CHLAMYDIA DNA AMPLIFICATION NEGATIVE (NEGATIVE); GC DNA AMPLIFICATION NEGATIVE (NEGATIVE)
== END ==
LOC: M SFHCWAGY 16:42
PROVIDERS: ATTEND Obstetrics & Gynecology
DX: R10.2 Pelvic and perineal pain (principal)

== ENCOUNTER 2020-09-28 16:55 | Emergency (ER) | payer OTHER ==
[~2020-09-28] VITALS: Ht 180.3 cm; Wt 92.3 kg
[~2020-09-28 16:55] MED LIST changes: +ASCO250T20 PO; -VITA1TAB23 PO
[2020-09-28] MEDS ORDERED: BCP (17:09)
[2020-09-28] MEDS ORDERED: POTA20TA6 PO (17:09)
[2020-09-28] MEDS ORDERED: MAGN400T2 PO (17:09)
[2020-09-28 19:13] LABS: BASO # 0.1 10^3/uL (0.0-0.2); BASO % 0.8 % (0.0-1.0); EOS # 0.3 10^3/uL (0.0-0.5); EOS % 4.7 % (0.0-3.0); HEMOGLOBIN 11.9 g/dl (12.0-15.5); LYMPH # 1.8 10^3/uL (1.5-5.0); LYMPH % 30.2 % (24.0-44.0); MEAN CORPUSCULAR HEMOGLOBIN 28.5 pg (27.0-33.0); MEAN CORPUSCULAR HGB CONC 32.2 g/dl (32.0-36.5); MEAN CORPUSCULAR VOLUME 88.5 fl (80.0-96.0); MONO # 0.4 10^3/uL (0.0-0.8); MONO % 6.3 % (0.0-5.0); NEUTROPHILS # 3.5 10^3/uL (1.5-8.5); NEUTROPHILS % 57.8 % (36.0-66.0); PLATELET COUNT, AUTOMATED 264 10^3/uL (150-450); RED BLOOD COUNT 4.18 10^6/uL (4.00-5.40)
[2020-09-28 19:34] LABS: HCG, SERUM QUALITATIVE NEGATIVE (NEGATIVE)
[2020-09-28 19:35] LABS: BLOOD UREA NITROGEN 8 MG/DL (7-18); CALCIUM LEVEL 8.1 MG/DL (8.5-10.1); CARBON DIOXIDE LEVEL 26 MEQ/L (21-32); CHLORIDE LEVEL 106 MEQ/L (98-107); CREATININE FOR GFR 0.86 MG/DL (0.55-1.30); GLOMERULAR FILTRATION RATE > 60.0 (>60); GLUCOSE, FASTING 96 MG/DL (70-100); POTASSIUM SERUM 3.6 MEQ/L (3.5-5.1); SODIUM LEVEL 142 MEQ/L (136-145)
[2020-09-28] MEDS ORDERED: diazePAM 10 MG TAB PO ONE (21:15)
[2020-09-28] MEDS ORDERED: METAL LOCK LOOP XX ONE (22:03)
--- NOTE | 2020-09-28 22:06 | REPVR ---
PROCEDURE INFORMATION: Exam: CT Abdomen and Pelvis without Contrast Exam date and time: 09/28/20 (9:06pm) Age: 25 years old Clinical indication: Right flank pain TECHNIQUE: Imaging protocol: Computed tomography of the abdomen and pelvis without contrast. Radiation optimization: All CT scans at this facility use at least one of these dose optimization techniques: automated exposure control; mA and/or kV adjustment per patient size (includes targeted exams where dose is matched to clinical indication); or iterative reconstruction. COMPARISON: CT ABDOMEN PELVIS of 02/23/20 FINDINGS: Liver: Normal. No solid mass. Gallbladder and bile ducts: Mildly distended gallbladder. No calcified stones. No ductal dilation. Pancreas: Normal. No ductal dilation. Spleen: Normal. No splenomegaly. Adrenal glands: Normal. No mass. Kidneys and ureters: Normal. No hydronephrosis. Stomach and bowel: Unremarkable. No bowel obstruction. No mucosal thickening. Appendix: Most likely previous appendectomy. No evidence of appendicitis. Intraperitoneal space: Unremarkable. No free air. No significant fluid collection. Vasculature: Unremarkable. No abdominal aortic aneurysm. Lymph nodes: Unremarkable. No enlarged lymph nodes. Urinary bladder: Unremarkable as visualized. Reproductive: Unremarkable as visualized. Bones/joints: Unremarkable. No acute fracture. Soft tissues: Unremarkable. IMPRESSION: No acute findings. No hydronephrosis is appreciated. No radiodense urinary tract stones are visualized. Electronically signed by: Raina Soto On 09/28/2020 22:06:30 PM
[2020-09-28] MEDS ORDERED: LIDOCAINE 5% (LIDODERM) PATCH TD ONE (22:30)
[2020-09-28] MEDS ORDERED: KETOROLAC 30 MG/ML 1ML VIAL IV ONE (22:30)
[2020-09-28] MEDS ORDERED: ASPE4PAD TOP (22:31)
[2020-09-28] MEDS ORDERED: ROBA750T4 PO (22:31)
[2020-09-28 22:41] VITALS: BP 135/75
[2020-09-28] MEDS ORDERED: KETOROLAC 60MG 2ML VIAL IM ONE (22:45)
[2020-09-29] MEDS ORDERED: **NOTE PATIENT COMMENT** MISC XX ONE (10:30)
== END 2020-09-28 23:05 | disposition home or self-care (01) ==
LOC: M ED 16:55
DX: R10.9 Unspecified abdominal pain (principal); Z88.8 Allergy status to other drugs, medicaments and biological substances
CPT/HCPCS: 74176; 80048; 81001; 84703; 85025; 87086; 96372; 99283; J1885

== ENCOUNTER → 2020-10-19 | Outpatient (CLI) | payer OTHER ==
[~2020-10-19] MED LIST changes: +ASPE4PAD TOP; +BCP; +MAGN400T2 PO; +POTA20TA6 PO; +ROBA750T4 PO
--- NOTE | 2020-10-19 11:21 | REP ---
INDICATION: OVARION CYST RT SIDE COMPARISON: 09/28/2020, 02/23/2020 TECHNIQUE: Axial noncontrast images from the lung bases to the pubic symphysis with coronal and sagittal reformations. This CT examination was performed using the following dose reduction techniques: Automated exposure control, adjustment of mA and/or kv according to the patient's size, and use of iterative reconstruction technique. FINDINGS: Lung bases are clear. Visualized heart and pericardium normal. Liver, spleen, pancreas, gallbladder, bilateral adrenal glands and right kidney are normal for noncontrast evaluation. 2 mm nonobstructing left renal calculus is identified.. The enteric system is unremarkable and without obstruction or acute inflammatory process. Evidence for prior appendectomy. Pelvis demonstrates normal bladder and age-appropriate uterus/adnexa. Mildly prominent appearance to the right adnexa is nonspecific. No obvious pelvic acute pathology is appreciated. No evidence for pelvic fluid or stranding. No ascites. No free air. No adenopathy. No focal inflammatory stranding. Abdominal aorta without aneurysm. Musculoskeletal structures are intact and without acute osseous abnormality. IMPRESSION: No acute abdominopelvic pathology appreciated. 2 mm nonobstructing left renal calculus. No significant pelvic pathology by noncontrast CT evaluation. <Electronically signed by Juan Alberto Piper > 10/19/20 [id number]
== END ==
LOC: M RAD 10:47
PROVIDERS: ATTEND Internal Medicine Nephrology
DX: N20.0 Calculus of kidney (principal); N83.201 Unspecified ovarian cyst, right side; Z87.440 Personal history of urinary (tract) infections; R10.30 Lower abdominal pain, unspecified

== ENCOUNTER → 2020-10-26 | Outpatient (REF) | payer OTHER | LOC: M LAB REF 17:18 | PROVIDERS: ATTEND Internal Medicine Nephrology | DX: R30.0 Dysuria (principal) ==